=== PATIENT | male | born 1935 | race Caucasian/White ===

== ENCOUNTER 2018-05-28 09:31 | Inpatient (IN) | payer MEDICARE ==
[2018-05-28] MEDS ORDERED: NS 0.9% 1000 ML* 1,000 ML IV ONE (09:56)
--- NOTE | 2018-05-28 10:06 | ED ---
Neurological HPI - HPI Summary HPI Summary: This is scribe Regulo Caruso documenting for attending Dr. Rufino Davis This patient is an 83 year old M presenting to [facility] accompanied by his with a chief complaint of focal neurological deficits since waking at 0800. He endorses that he woke up at 0400, went to bathroom and experienced no sx. When he woke up again at 0800 and couldnt get up due to left sided hemiparesis, right-sided facial droop. Rx Aggrenox. PMHx AL 1999, 2 stents, 2000 TIA, elevated WBC when he had his AL. I, Dr. Joy personally performed the services described in this documentation as scribed in my presence and it is both accurate and complete. - History of Current Complaint Chief Complaint: EDWeakness Stated Complaint: WEAKNESS Time Seen by Provider: 05/28/18 09:49 Hx Obtained From: Patient, Family/Assistant Hall Director - Onset/Duration: Sudden Onset, Started hours ago, Still Present Timing: Constant Onset Severity: Moderate Current Severity: Moderate Neurological Deficit Location: Facial - right, LUE Pain Intensity: 0 Pain Scale Used: 0-10 Numeric Character: Motor Weakness Aggravating: Nothing Alleviating: Nothing Associated Signs and Symptoms: Positive: Weakness TPA Considered: No - LKW 0400 Similar Episode/Dx as: PMHx CVA and TIA Related Hx: Anticoagulants - Aggrenox - Allergy/Home Medications Allergies/Adverse Reactions: Allergies Allergy/AdvReac Type Severity Reaction Status Date / Time No Known Allergies Allergy Verified 05/28/18 10:09 Home Medications: Home Medications Acetaminophen [Tylenol Extra Strength] 500 mg PO SEE INSTRUCTIONS PRN 05/28/18 [ History Confirmed 05/28/18] Aspirin 81 mg CHEW TAB* [Aspirin Low Dose TAB*] 81 mg PO DAILY 05/28/18 [ History Confirmed 05/28/18] Dipyridamole/Aspirin 25/200* [Aggrenox 25/200*] 1 cap.er PO BID 05/28/18 [ History Confirmed 05/28/18] Isosorbide Dinitrate TAB* [Isordil TAB*] 40 mg PO DAILY 05/28/18 [History Confirmed 05/28/18] Multivit-Min/FA/Lycopen/Lutein [Centrum Silver Men Tablet] 1 each PO DAILY 05/28 [History Confirmed 05/28/18] Pravastatin Sodium 40 mg PO DAILY 05/28/18 [History Confirmed 05/28/18] Quinapril HCl 20 mg PO DAILY 05/28/18 [History Confirmed 05/28/18] Tamsulosin CAP* [Flomax CAP*] 0.4 mg PO DAILY 05/28/18 [History Confirmed ] PMH/Surg Hx/FS Hx/Imm Hx Endocrine/Hematology History: Denies: Hx Sickle Cell Disease Cardiovascular History: Reports: Hx Coronary Artery Disease, Hx Myocardial Infarction Denies: Hx Auto Implanted Cardiovert Defib History: Denies: Hx Dialysis Sensory History: Denies: Hx Legally Blind Opthamlomology History: Denies: Hx Legally Blind Neurological History: Reports: Hx Transient Ischemic Attacks (TIA) Psychiatric History: Denies: Hx Autism, Hx Schizophrenia - Surgical History Surgery Procedure, Year, and Place: 2x stents 2000 s/p [place]. Infectious Disease History: Yes Infectious Disease History: Denies: Traveled Outside the [place] in Last 30 Days - Family History Known Family History: Negative: Blood Disorder - Social History Occupation: Retired Lives: With Family - Alcohol Use: Rare Hx Substance Use: No Substance Use Type: Reports: None Hx Tobacco Use: No Smoking Status (MU): Never Smoked Tobacco Review of Systems Positive: Other - right-sided facial droop. Negative: Fever Positive: no symptoms reported Positive: Weakness - left-sided hemiparesis All Other Systems Reviewed And Are Negative: Yes Physical Exam - Summary Physical Exam Summary: VITAL SIGNS: Reviewed. GENERAL: Patient is a well-developed and nourished male who is lying comfortable in the stretcher.Patient is not in any acute respiratory distress. HEAD AND FACE: No signs of trauma. No ecchymosis, hematomas or skull depressions. No sinus tenderness. Right sided facial droop EYES: PERRLA, EOMI x 2, No injected conjunctiva, no nystagmus. No photophobia. EARS: Hearing grossly intact. Ear canals and tympanic membranes are within normal limits. MOUTH: Oropharynx within normal limits. NECK: Supple, trachea is midline, no adenopathy, no JVD, no carotid bruit, no c- spine tenderness, neck with full ROM. No meningeal signs, no Kernig's or brudzinskis signs. CHEST: Symmetric, no tenderness at palpation LUNGS: Clear to auscultation bilaterally. No wheezing or crackles. CVS: Regular rate and rhythm, S1 and S2 present, no murmurs or gallops appreciated. ABDOMEN: Soft, non-tender. No signs of distention. No rebound no guarding, and no masses palpated. Bowel sounds are normal. EXTREMITIES: left sided hemiparesis, no edema, no cyanosis or clubbing. NEURO: Alert and oriented x 3. Left sided weakness, facial droop on right side. Speech is normal and follows commands. NIH score: 2. SKIN: Dry and warm GCS: 15 Triage Information Reviewed: Yes Vital Signs On Initial Exam: Initial Vitals Temp Pulse Resp BP Pulse Ox 98.8 F 63 19 187/84 96 05/28/18 09:35 05/28/18 09:35 05/28/18 09:35 05/28/18 09:35 05/28/18 09:35 Vital Signs Reviewed: Yes - Lewellen Coma Scale Best Eye Response: 4 - Spontaneous Best Motor Response: 6 - Obeys Commands Best Verbal Response: 5 - Oriented Coma Scale Total: 15 Diagnostics - Vital Signs Vital Signs Temp Pulse Resp BP Pulse Ox 05/28/18 09:35 98.8 F 63 19 187/84 96 - Laboratory Result Diagrams: 05/29/18 05:11 05/29/18 05:11 Lab Statement: Any lab studies that have been ordered have been reviewed, and results considered in the medical decision making process. - Radiology CXR Radiology Interpretation Completed By: Radiologist - No active cardiopulmonary disease is noted. Dr. Joy has reviewed this report. - CT Brain CT Interpretation: No Acute Changes CT Interpretation Completed By: Radiologist - Chronic ischemic White matter change without evidence of intracranial mass or hemorrhage. Dr. Jyo has reviewed this report. - EKG 1002 Cardiac Rate: NL - 60 EKG Rhythm: Sinus Rhythm ST Segment: Normal Ectopy: None EKG Interpretation: nl axis and no STEMI NIH Scale - NIH Scale Level of Consciousness: Alert/Keenly Responsive Ask Patient the Month and His/Her Age: Both Correct Ask Pt to Open/Close Eyes and Dental Amalgam Processor/Release Non-Paretic Hand: Both Correctly Best Gaze (Only Horizontal Eye Movement): Normal Visual Field Testing: No Visual Loss Facial Paresis-Pt to Smile & Close Eyes or Grimace Symmetry: Minor Paralysis Motor Function - Right Arm: No Drift-Holds 10 Seconds Motor Function - Left Arm: Drifts LT 10 seconds Motor Function - Right Leg: No Drift-Holds 10 Seconds Motor Function - Left Leg: No Drift-Holds 10 Seconds Limb Ataxia-Must be out of Proportion to Weakness Present: Absent Sensory (Use Pinprick to Test Arms/Legs/Trunk/Face): Normal Best Language (Describe Picture, Name Items): No Aphasia Dysarthria (Read Several Words): Normal Extinction and Inattention: No Abnormality Total Score: 2 Re-Evaluation - Re-Evaluation First Eval Re-Evaluation Time: 11:50 Change: Unchanged Comment: Discussed elevated WBC count, PMHx, surgical Hx, and FHx. Course/Dx - Course Assessment/Plan: Blood test results shows a white cell count of 35.6, hemoglobin 13.4 hematocrit of 40, and platelets 163. Sodium 131 glucose 160 CRP of 22.8. Urinalysis is negative for UTI. Chest x-ray impression negative acute pathology. Head CT impression: Chronic ischemic white matter changes without evidence of intracranial mass or hemorrhage. In the ED course the patient remained stable. The patient was given aspirin. At this time I discussed the case with Dr. Dong for neurologist who agrees to consult for this patient. He also recommends to admit the patient to hospitalist to rule out CVA. At this time I discussed the case with Dr. Frazier the hospitalist and he accepted the patient for admission. At this point the patient will be admitted for TIA versus CVA and leukocytosis. - Differential Dx Differential Diagnoses Neuro: Positive: Cerebrovascular Accident, Transient Ischemic Attack - Diagnoses Provider Diagnoses: Leukocytosis - Physician Notifications Discussed Care Of Patient With: Dilma Dong Time Discussed With Above Provider: 11:55 Instructed by Provider To: Other - will see patient in ED. Discharge - Sign-Out/Discharge Documenting (check all that apply): Patient Departure - admit - Discharge Plan Condition: Fair Disposition: ADMITTED TO [facility] - Billing Disposition and Condition Condition: FAIR Disposition: Admitted to [facility] Attestations User Type: Provider with Scribe Provider Attestation: The documentation recorded by the scribe accurately reflects the service I personally performed and the decisions made by me. Consult Consult: 1201: Dr. Frazier: Accepts admission. Attestation Statement User Type: Provider - I, Dr. Joy personally performed the services described in this documentation as scribed in my presence and it is both accurate and complete.
[2018-05-28 10:20] LABS: Hematocrit 40 % (42-52); Hemoglobin 13.4 g/dl (14.0-18.0); Mean Corpuscular HGB Conc 34 g/dl (31-36); Mean Corpuscular Hemoglobin 31 pg (27-31); Mean Corpuscular Volume 92 fL (80-94); Mean Platelet Volume 6.9 um3 (7.4-10.4); Platelet Count 163 10^3/ul (150-450); Red Blood Count 4.34 10^6/ul (4.00-5.40); Red Cell Distribution Width 13 % (10.5-15); White Blood Count 35.6 10^3/ul (3.5-10.8)
[2018-05-28 10:29] LABS: INR 1.04 (0.77-1.02)
--- NOTE | 2018-05-28 10:35 | RAD ---
Indication: Left-sided weakness. CT of the brain performed without IV contrast. No prior study is available for comparison. Ventricular structures are midline. No midline shift is noted. Central and cortical atrophy is noted. There is no evidence of intracranial mass or hemorrhage. No other high or low density lesions are identified. Periventricular lucency consistent with chronic ischemic White matter change is noted. Mastoid air cells and paranasal sinuses are otherwise unremarkable. IMPRESSION: Chronic ischemic White matter change without evidence of intracranial mass or hemorrhage.
[2018-05-28 10:39] LABS: EGFR Non-African American 76.1 (>60)
[2018-05-28 10:47] LABS: ABS Basophils 0.2 10^3/ul (0-0.2); ABS Eosinophils 0 10^3/ul (0-0.6); ABS Lymphocytes 16.5 10^3/ul (1.0-4.8); ABS Monocytes 1.4 10^3/ul (0-0.8); ABS Neutrophils 17.6 10^3/ul (1.5-7.7)
[2018-05-28 10:50] LABS: ABS Basophils 0 10^3/ul (0-0.2); ABS Neutrophils 14.2 10^3/ul (1.5-7.7); Monocytes % 5 % (0-7)
--- NOTE | 2018-05-28 10:50 | RAD ---
Indication: Left-sided weakness. 2 views of the chest demonstrate no mediastinal shift. There is cardiomegaly noted. Lung feliciano demonstrate no pleural fluid, pneumonia or pneumothorax. IMPRESSION: No active cardiopulmonary disease is noted.
[2018-05-28 11:30] LABS: Urine Appearance Cloudy; Urine Blood 2+ (Negative); Urine Color Yellow; Urine Ketones Negative (Negative); Urine Protein 1+(30 mg/dL) (Negative); Urine Red Blood Cell 3+(>10/hpf) (Absent); Urine Specific Gravity 1.014 (1.010-1.030); Urine Urobilinogen Negative (Negative); Urine White Blood Cell Trace(0-5/hpf) (Absent)
[2018-05-28] MEDS ORDERED: Aspirin 81 mg CHEW TAB* 81 MG TAB.CHEW PO ONE (11:58)
[2018-05-28] MEDS ORDERED: hydrALAZINE IV* 20 MG/ML VIAL IV SLOW PU PRN ×2 (14:12→20:01)
[2018-05-28] MEDS ORDERED: Clopidogrel TAB* 300 MG PO SCH (15:00)
--- NOTE | 2018-05-28 15:19 | RAD ---
INDICATION: TIA COMPARISON: None TECHNIQUE: Transverse and longitudinal scans of the carotid and vertebral arteries were performed with ronquillo scale, color Doppler, and spectral Doppler imaging. Stenosis criteria is based on flow velocities that correlate with visual internal carotid artery diameter (NASCET criteria) FINDINGS: Right carotid: There is minor plaque involving the bifurcation. There is no spectral broadening. The peak systolic velocity of the internal carotid artery is 72 cm/s and the peak diastolic velocity 14 cm/s. The ICA/CCA ratio is calculated at 0.8. This corresponds to a less than 50% diameter stenosis. Left carotid: There is minor plaque involving the bifurcation. There is no spectral broadening. The peak systolic velocity of the internal carotid artery is 110 cm/s and the peak diastolic velocity 19 cm/s. The ICA/CCA ratio is calculated at 1.2. This corresponds to a less than 50% diameter stenosis. Right vertebral: Right vertebral waveforms are normal and the flow is antegrade. Left vertebral: Left vertebral waveforms are normal and the flow is antegrade. Other: There are elevated velocities left subclavian artery which suggests the possibility of a sclerotic change involving the great vessels arising from the arch. This would require CT angiographic evaluation if there is clinical indication. IMPRESSION: NO EVIDENCE OF A HEMODYNAMICALLY SIGNIFICANT STENOSIS. CPT II Codes: 3100F RS
--- NOTE | 2018-05-28 16:01 | RAD ---
Indication: TIA versus stroke. Sagittal and axial T1, axial T2, FLAIR, diffusion, susceptibility weighted images of the brain were obtained. No prior study is available for comparison. Ventricular structures are midline. No midline shift is noted. The extra-axial spaces are prominent consistent with central and cortical atrophy. Periventricular signal abnormality likely represents chronic ischemic White matter change. There is a tiny focus of restriction of diffusion involving the right temporal insula which appears to be decreased in signal on the ADC map. This is consistent with a small lacunar infarct. The brainstem and posterior fossa are otherwise unremarkable. Paranasal sinuses and mastoid air cells are unremarkable. Orbits are grossly unremarkable. IMPRESSION: Chronic ischemic White matter change. Central and cortical atrophy with small focal area of restriction of diffusion in the right temporal insula consistent with a small lacunar infarct.
--- NOTE | 2018-05-28 16:28 | HP ---
ADMITTING HISTORY AND PHYSICAL: DATE OF ADMISSION: 05/28/18 CHIEF COMPLAINT: Left-sided hemiparesis and right facial droop. HISTORY OF PRESENT ILLNESS: The patient is an 83-year-old gentleman with history of hypertension, CAD, status post NE in 1999, status post 2 stents placed as well as history of TIA diagnosed back in 2008 who mentioned that he was in his usual state of health until a few hours prior to admission. More specifically he mentioned that at around 4 a.m., he woke up to go to the bathroom and was still in his usual state of health and then went back to sleep. He then woke up again, he then reawoke at 8 a.m. and it was at that time that he noticed that he could not get up and felt that his left side was weak and his also found that the right side of his face had significant droop from previous. He was then brought to the ED for further evaluation at which point he had a CT scan of his head done which only showed some chronic ischemic white matter changes without intracranial mass or hemorrhage. Therefore Dr. Dong was consulted by Dr. Joy who then suggested that the patient can be admitted with followup Neurology consult thereafter. In addition, subsequent workup reveals significant leukocytosis at 35.6 and the mentions that they have been requested to follow up with the bi solutions architect in the past immediately right after his NE when they were told that his white count was elevated. Unfortunately, she barely remembers any of the details and specially the level at which the leukocytosis was found. They also failed to follow up with the suggested Hematology consultation as an outpatient when they were discharged at that time. In the ED, the patient was given aspirin 324 mg x1. PAST MEDICAL HISTORY: CAD status post NE back in 1999 receiving 2 cardiac stents, TIA back in 2008, hypertension, hypercholesterolemia, leukocytosis back in 1999 at [place], [place], where it was diagnosed at around the same time that he had his stents. PAST SURGICAL HISTORY: Status post tonsillectomy. ALLERGIES: NKDA. FAMILY HISTORY: Diabetes, his mother. CAD, his father. SOCIAL HISTORY: The patient was pipe smoker for about 4 to 5 years and only smoked one pipe per day during that time. Denies any history of alcohol abuse nor IV drug use. He is for 57 years with 2 healthy sons. REVIEW OF SYSTEMS: On review of systems, other than the right facial droop and left-sided hemiparesis described above, the patient denied any recent headaches , dizziness, fever, chills, nausea, vomiting, chest pain, shortness of breath, increase cough. No sputum production, abdominal pain, diarrhea, constipation pain and/or increase frequency in urination, myalgias, arthralgias, throat pain , or new skin lesion. The rest of the 14-point review of systems are otherwise unremarkable. PHYSICAL EXAMINATION GENERAL APPEARANCE: The patient is awake, not in acute distress. VITAL SIGNS: Shows the most recent vital signs of records with blood pressure of 177/82, 62 beats per minute heart rate, 21 per minute respiratory rate, saturating at 96% on room air. HEENT: Normocephalic, atraumatic. PERRLA. Extraocular muscles intact. Negative for icterus. Moist oral mucosa. Negative throat erythema. NECK: Soft, supple with no cervical lymphadenopathy. No JVD. CHEST: Clear to auscultation bilaterally. Good air entry. No wheezes, rales, or rhonchi. HEART: S1 and S2 within normal limits. Regular rate and rhythm. No murmurs, rubs, or gallops. ABDOMEN: Soft, nondistended, and nontender. Normoactive bowel sounds 4x q. EXTREMITIES: No cyanosis, clubbing with 1+ bilateral lower extremity edema. PSYCHIATRIC: No active psychosis, depression, suicidal, no homicidal ideation. SKIN: Warm to touch. NEUROLOGIC: Negative for Babinski in the bilateral lower extremities. Negative for Chaddock sign. The patient still has some mild right facial droop and has some mild asymmetry on smiling. The patient's mixing pan tender strengths on the left is slightly weaker than the right. However, extension and flexion motions were normal of the upper extremities as well as the lower extremities. No sensory deficit was elicited. LABORATORY DATA: Most recent and pertinent laboratory: CT of the head shows chronic ischemic white matter changes without any intracranial mass or hemorrhage. Chest x-ray shows no active disease. EKG shows nonspecific ST segment in V1, which is not consistent with V2 in the rest of the chest leads. There are no other abnormalities found. Troponins were found to be normal at 0.03. CRP was found to be mildly elevated at 22.83. CBC reveals 35.6 WBC, H and H of 13.4 and 40, platelets of 163. BUN and creatinine were found to be normal as well as the rest of his CMP. Urinalysis shows no wbc/leukocytosis. ASSESSMENT AND PLAN: The patient is an 83-year-old gentleman with history of coronary artery disease status post myocardial infarction, hypertension and transient ischemic attack being admitted for right facial droop and left-sided hemiparesis secondary to either cerebrovascular accident versus transient ischemic attack. 1. Cerebrovascular accident/transient ischemic attack. We will continue Aggrenox. However, we will discontinue aspirin, given Aggrenox already has an aspirin component and instead we will place the patient on Plavix especially given he was already on aspirin and dipyridamole when the above chief complaint occurred. We will continue with his statins as well. 2. Hypertension. We will place the patient on an equivalent dosing of formulary ELENA inhibitor and at the same time, we will place the patient on p.r.n. IV hydralazine 5 mg q.6 p.r.n. for BP greater than or equal to 160/90. 2. 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 Joy as well as Dr. Grover. Per Dr. Grover, she has suggested flow cytometry to be done and this has been ordered as well and we will differ with any further input from Dr Grover. 3. DVT prophylaxis. We will place the patient on low dose Lovenox given his advanced age and as well as being on 2 antiplatelet therapy. 4. Disposition. For PT/OT eval as well as for swallow eval. [id number]/[facility] #: [id number] [facility]
[2018-05-28] MEDS: Enoxaparin(*) 30 MG/0.3 ML SYR SUBCUT SCH (16:43)
[2018-05-28] MEDS ORDERED: Dipyridamole/Aspirin 25/200* CAP.ER PO SCH (21:00)
[2018-05-29] MEDS: Acetaminophen TAB* 325 MG PO PRN (00:39)
[2018-05-29] MEDS ORDERED: Vancomycin per Pharmacy* NOTE FOLLOW UP SCH ×2 (01:00)
--- NOTE | 2018-05-29 01:01 | PN ---
Progress Note - Progress Note Date of Service: 05/29/18 Note: All 4 blood CX bottles reported to have mixture of G+ clusters & chains, MRSA negative, MSSA negative. No ABX currently. Ordered Vancomycin pharmacy dosing & cefepime 2g IV BID. Plan would be to de-escalate ABX once organisms better characterized. Consider ID consult in AM.
[2018-05-29] MEDS ORDERED: Vancomycin(*) 1,250 MG in NS 0.9% 250 ML* 250 ML IVPB ONE (01:30)
[2018-05-29] MEDS: NS 0.9% 1000 ML* 1,000 ML IV SCH ×2 (01:38→20:48)
[2018-05-29] MEDS: Cefepime 2 GM in Dextrose(*) 2 GM/50 ML BAG IV SCH ×2 (01:38→15:52)
[2018-05-29 05:34] LABS: Hematocrit 38 % (42-52); Hemoglobin 12.7 g/dl (14.0-18.0); Mean Corpuscular HGB Conc 34 g/dl (31-36); Mean Corpuscular Hemoglobin 31 pg (27-31); Mean Corpuscular Volume 92 fL (80-94); Mean Platelet Volume 7.4 um3 (7.4-10.4); Platelet Count 151 10^3/ul (150-450); Red Blood Count 4.09 10^6/ul (4.00-5.40); Red Cell Distribution Width 13 % (10.5-15); White Blood Count 25.7 10^3/ul (3.5-10.8)
[2018-05-29 05:56] LABS: EGFR Non-African American 73.4 (>60)
--- NOTE | 2018-05-29 07:20 | CONSULT ---
Consultation - Reason for Consultation Reason for Consultation: leukocytosis Ordering Provider: Destin Frazier Chief Complaint: weakness History of Present Illness: It should be noted that Gianluca is a poor historian, particularly in regards to timeline Mr. Gray presented to the ER yesterday with right facial droop and left sided weakness. MRI of his brain confirms a small lacunar infarct. Overnight he apparently grew 4/4 bottles positive for gram positive cocci resembling staph and was started on antibiotics. His anticoagulation was held for potential lumbar puncture today pending ID consultation. He reports this am that he thinks his weakness is slightly better, though he has not been out of bed to ambulate. He was noted on admission to have significant leukocytosis with a lymphocyte predominance and smudge cells. 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 He reports that he stopped following up because he is old and does not particularly care. He specifically denies fevers , night sweats, weight loss, RIVERA or early satiety. Allergies/Medications Medication: Acetaminophen (Tylenol Tab*) 650 mg PO Q6H PRN PRN Reason: FEVER/PAIN Last Admin: 05/29/18 00:39 Dose: 650 mg Atorvastatin Calcium (Lipitor*) 20 mg PO DAILY [facility] Clopidogrel Bisulfate (Plavix Tab*) 75 mg PO DAILY [facility] Dipyridamole/Aspirin (Aggrenox 25/200*) 1 cap.er PO BID [facility] Last Admin: 05/28/18 21:42 Dose: 1 cap.er Enoxaparin Sodium (Lovenox(*)) 30 mg SUBCUT Q24H [facility] Last Admin: 05/28/18 16:43 Dose: 30 mg Hydralazine HCl (Apresoline Iv*) 10 mg IV SLOW PU Q6H PRN PRN Reason: BLOOD PRESSURE Cefepime HCl (Maxipime 2 Gm In Dextrose Duplex (*)) 2 gm in 50 mls @ 100 mls/ hr IV Q12H [facility] Last Admin: 05/29/18 01:38 Dose: 100 mls/hr Sodium Chloride (Ns 0.9% 1000 Ml*) 1,000 mls @ 75 mls/hr IV PER RATE [facility] Last Admin: 05/29/18 01:38 Dose: 75 mls/hr Vancomycin HCl 1,000 mg/ (Sodium Chloride) 250 mls @ 166.667 mls/hr IVPB Q12H [facility] Isosorbide Mononitrate (Imdur Er Tab*) 60 mg PO DAILY [facility] Lisinopril (Prinivil Tab*) 40 mg PO DAILY [facility] Pharmacy Consult (Vancomycin Per Pharmacy*) 1 note FOLLOW UP .VANC PER PHARMACY [facility] Pharmacy Profile Note (Vancomycin Trough Check) 1 note FOLLOW UP 1430 ONE Stop: 05/30/18 14:31 Tamsulosin HCl (Flomax Cap*) 0.4 mg PO DAILY [facility] Allergies/Adverse Reactions: Allergies Allergy/AdvReac Type Severity Reaction Status Date / Time No Known Allergies Allergy Verified 05/28/18 10:09 History - Past Medical History Other History: CAD sp NE w stents 1999. TIA 2008. HTN. hyerplipidemia. likely CLL. tonsillectomy - Family History Hx Family Cancer: No - Social History Hx Alcohol Use: No Hx Tobacco Use: No Marital Status: Review of Systems - Review of Systems Dermatology: Positive: Normal HEENT: Positive: Other - age related hearing loss Eyes: Positive: Normal Thyroid: Positive: Normal Pulmonary: Positive: Normal Cardiology: Positive: Normal Gastroenterology: Positive: Normal Genital - Urinary: Positive: Normal Musculoskeletal: Positive: Low Back Pain Endocrinology: Positive: Normal Neurology: Positive: Other - r facial droop Physical Exam - Physical Exam Physical Examination: Vital Signs Temp Pulse Resp BP Pulse Ox 97.6 F 51 16 146/47 100 05/29/18 04:41 05/29/18 04:18 05/29/18 04:18 05/29/18 04:18 05/29/18 04:18 lying flat in bed in nad perr eomi right facial droop CTA bl s1 s2 bradycardia soft nt +Bs no splenomegaly no le edema r facial droop, did not ambulate 5/5 strength throughout A+O x2, problems with time line Results - Lab Results Lab Results: 05/28/18 05/28/18 05/28/18 10:06 10:06 10:06 WBC 35.6 H RBC 4.34 Hgb 13.4 L Hct 40 L MCV 92 MCH 31 MCHC 34 RDW 13 Plt Count 163 MPV 6.9 L Neut % (Auto) Not Reportable Lymph % (Auto) Not Reportable Ford % (Auto) Not Reportable Eos % (Auto) Not Reportable Baso % (Auto) Not Reportable Absolute Neuts (auto) 17.6 H Absolute Lymphs (auto) 16.5 H Absolute Monos (auto) 1.4 H Absolute Eos (auto) 0 Absolute Basos (auto) 0.2 Absolute Nucleated RBC Not Reportable Immature Gran % 6 Neutrophils % 40 Band Neutrophils % 6 Lymphocytes % 46 Reactive Lymphs % 3 Monocytes % 5 Eosinophils % 0 Basophils % 0 Nucleated RBC % Not Reportable Abs Neuts (Manual) 14.2 H Abs Lymphs (Manual) 16.4 H Abs Monocytes (Manual) 1.8 H Absolute Eos (Manual) 0 Abs Basophils (Manual) 0 Smudge Cells Present Normal RBC Morphology Not Reportable INR (Anticoag Therapy) 1.04 H APTT 28.3 Sodium 131 L Potassium 4.3 Chloride 100 L Carbon Dioxide 24 Anion Gap 7 BUN 16 Creatinine 0.95 Est GFR ( Amer) 92.1 Est GFR (Non-Af Amer) 76.1 BUN/Creatinine Ratio 16.8 Glucose 160 H Hemoglobin A1c Lactic Acid Calcium 8.8 Phosphorus Magnesium Total Bilirubin 1.20 H AST 16 ALT 13 Alkaline Phosphatase 55 Troponin I 0.03 C-Reactive Protein 22.83 H Total Protein 5.8 L Albumin 3.8 Globulin 2.0 Albumin/Globulin Ratio 1.9 Triglycerides 39 Cholesterol 113 LDL Cholesterol 63 HDL Cholesterol 42.4 TSH 0.69 Urine Color Urine Appearance Urine pH Ur Specific [place] Urine Protein Urine Ketones Urine Blood Urine Nitrate Urine Bilirubin Urine Urobilinogen Ur Leukocyte Esterase Urine WBC (Auto) Urine RBC (Auto) Urine Bacteria Urine Glucose 05/28/18 05/28/18 05/28/18 10:06 10:06 10:54 WBC RBC Hgb Hct MCV MCH MCHC RDW Plt Count MPV Neut % (Auto) Lymph % (Auto) Ford % (Auto) Eos % (Auto) Baso % (Auto) Absolute Neuts (auto) Absolute Lymphs (auto) Absolute Monos (auto) Absolute Eos (auto) Absolute Basos (auto) Absolute Nucleated RBC Immature Gran % Neutrophils % Band Neutrophils % Lymphocytes % Reactive Lymphs % Monocytes % Eosinophils % Basophils % Nucleated RBC % Abs Neuts (Manual) Abs Lymphs (Manual) Abs Monocytes (Manual) Absolute Eos (Manual) Abs Basophils (Manual) Smudge Cells Normal RBC Morphology INR (Anticoag Therapy) APTT Sodium Potassium Chloride Carbon Dioxide Anion Gap BUN Creatinine Est GFR ( Amer) Est GFR (Non-Af Amer) BUN/Creatinine Ratio Glucose Hemoglobin A1c 6.5 H Lactic Acid 0.9 Calcium Phosphorus Magnesium Total Bilirubin AST ALT Alkaline Phosphatase Troponin I C-Reactive Protein Total Protein Albumin Globulin Albumin/Globulin Ratio Triglycerides Cholesterol LDL Cholesterol HDL Cholesterol TSH Urine Color Yellow Urine Appearance Cloudy Urine pH 8.0 Ur Specific [place] 1.014 Urine Protein 1+(30 mg/dl) A Urine Ketones Negative Urine Blood 2+ A Urine Nitrate Negative Urine Bilirubin Negative Urine Urobilinogen Negative Ur Leukocyte Esterase Negative Urine WBC (Auto) Trace(0-5/hpf) Urine RBC (Auto) 3+(>10/hpf) A Urine Bacteria Absent Urine Glucose Negative 05/28/18 05/29/18 05/29/18 18:11 00:31 05:11 WBC 25.7 H RBC 4.09 Hgb 12.7 L Hct 38 L MCV 92 MCH 31 MCHC 34 RDW 13 Plt Count 151 MPV 7.4 Neut % (Auto) Lymph % (Auto) Ford % (Auto) Eos % (Auto) Baso % (Auto) Absolute Neuts (auto) Absolute Lymphs (auto) Absolute Monos (auto) Absolute Eos (auto) Absolute Basos (auto) Absolute Nucleated RBC Immature Gran % Neutrophils % Band Neutrophils % Lymphocytes % Reactive Lymphs % Monocytes % Eosinophils % Basophils % Nucleated RBC % Abs Neuts (Manual) Abs Lymphs (Manual) Abs Monocytes (Manual) Absolute Eos (Manual) Abs Basophils (Manual) Smudge Cells Normal RBC Morphology INR (Anticoag Therapy) APTT Sodium Potassium Chloride Carbon Dioxide Anion Gap BUN Creatinine Est GFR ( Amer) Est GFR (Non-Af Amer) BUN/Creatinine Ratio Glucose Hemoglobin A1c Lactic Acid Calcium Phosphorus Magnesium Total Bilirubin AST ALT Alkaline Phosphatase Troponin I 0.03 0.05 H* C-Reactive Protein Total Protein Albumin Globulin Albumin/Globulin Ratio Triglycerides Cholesterol LDL Cholesterol HDL Cholesterol TSH Urine Color Urine Appearance Urine pH Ur Specific [place] Urine Protein Urine Ketones Urine Blood Urine Nitrate Urine Bilirubin Urine Urobilinogen Ur Leukocyte Esterase Urine WBC (Auto) Urine RBC (Auto) Urine Bacteria Urine Glucose 05/29/18 05:11 WBC RBC Hgb Hct MCV MCH MCHC RDW Plt Count MPV Neut % (Auto) Lymph % (Auto) Ford % (Auto) Eos % (Auto) Baso % (Auto) Absolute Neuts (auto) Absolute Lymphs (auto) Absolute Monos (auto) Absolute Eos (auto) Absolute Basos (auto) Absolute Nucleated RBC Immature Gran % Neutrophils % Band Neutrophils % Lymphocytes % Reactive Lymphs % Monocytes % Eosinophils % Basophils % Nucleated RBC % Abs Neuts (Manual) Abs Lymphs (Manual) Abs Monocytes (Manual) Absolute Eos (Manual) Abs Basophils (Manual) Smudge Cells Normal RBC Morphology INR (Anticoag Therapy) APTT Sodium 131 L Potassium 4.0 Chloride 102 Carbon Dioxide 23 Anion Gap 6 BUN 19 Creatinine 0.98 Est GFR ( Amer) 88.8 Est GFR (Non-Af Amer) 73.4 BUN/Creatinine Ratio 19.4 Glucose 157 H Hemoglobin A1c Lactic Acid Calcium 8.2 L Phosphorus 3.3 Magnesium 1.8 L Total Bilirubin 0.80 AST 14 ALT 11 Alkaline Phosphatase 47 Troponin I 0.03 C-Reactive Protein Total Protein 5.1 L Albumin 3.0 L Globulin 2.1 Albumin/Globulin Ratio 1.4 Triglycerides 56 Cholesterol 99 LDL Cholesterol 52 HDL Cholesterol 36.3 TSH Urine Color Urine Appearance Urine pH Ur Specific [place] Urine Protein Urine Ketones Urine Blood Urine Nitrate Urine Bilirubin Urine Urobilinogen Ur Leukocyte Esterase Urine WBC (Auto) Urine RBC (Auto) Urine Bacteria Urine Glucose Assessment and Plan Impression: 83 yo M admitted with a CVA with course complicated by bacteremia, found to have leukocytosis with lymphocyte predominance. 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 Flow is pending. He is clear that he is unlikely to follow up with me, though I will give him an appointment on discharge. In terms of his bacteremia and the question of need for LP, I will defer to ID and anesthesia on this, but IF he does get an LP, please send for cytology and flow cytometry on the off chance that there is DICE DEALER involvement (suspicion quite low).
[2018-05-29] MEDS ORDERED: Magnesium Sulfate 2 GM IV* 2 GM/50 ML BAG IVPB ONE (08:00)
[2018-05-29] MEDS: Atorvastatin* 20 MG TAB PO SCH (08:49)
[2018-05-29] MEDS: Aspirin 81 mg CHEW TAB* 81 MG TAB.CHEW PO SCH (08:49)
[2018-05-29] MEDS: Lisinopril TAB* 10 MG PO SCH (08:49)
[2018-05-29] MEDS: Tamsulosin CAP* 0.4 MG PO SCH (08:50)
[2018-05-29] MEDS: Isosorbide Mononitrate ER TAB* 60 MG PO SCH (08:50)
[2018-05-29] MEDS ORDERED: Clopidogrel TAB* 75 MG PO SCH (09:00)
--- NOTE | 2018-05-29 12:24 | ECHO ---
Patient: SERGIO CHAMBERS [facility] Rec#: [id number] : 1935 Date: 05/29/2018 Age: 83y Height: 175 cm / 68.9 in Weight: 76.2 kg / 167.9 lbs Sex: M BSA: 1.92 Room#: 431 Admit Date#: 05/28/2018 Type: Inpatient Referring: Destin Frazier Reading: Chriss Joyner MD Pasteuriser Operator: Alisia Schwab RDCS CC: Eldon Sullivan MD Transthoracic Echocardiogram Indication: CVA, Bacteremia BP: 146/47 HR: 56 Rhythm: Bradycardia Findings History: CAD, IA, s/p PCI, TIA. Technical Comments: The study quality is fair. Completed at 1100. Left Ventricle: The left ventricular chamber size is normal. Mild concentric left ventricular hypertrophy is observed. There is a prominent septal knuckle. There is normal left ventricular systolic function. The estimated ejection fraction is 60-65%. There is septal flattening of the interventricular septum consistent with right ventricular volume or pressure overload. Abnormal left ventricular diastolic function is observed. Abnormal left ventricular diastolic filling is observed, consistent with impaired relaxation. Left Atrium: The left atrium is mildly dilated. Right Ventricle: Moderator Band present. The right ventricle is moderately dilated. The right ventricular global systolic function is normal. Right Atrium: The right atrium is moderate to severely dilated. No atrial septal defect is demonstrated by color Doppler. There were late bubbles seen in the left atrium.with valsalva. Possible PFO by contrast injection. Aortic Valve: The aortic valve is trileaflet. The aortic valve leaflets are mildly thickened. There is aortic annular calcification. There is a trace of aortic regurgitation. There is no evidence of aortic stenosis. Mitral Valve: There is mitral annular calcification. The mitral valve leaflets are mildly thickened. There is mild mitral regurgitation. There is no evidence of mitral stenosis. Tricuspid Valve: The tricuspid valve leaflets are normal. There is mild tricuspid regurgitation. The right ventricular systolic pressure is estimated at 32 mmHg. There is evidence that pulmonary hypertension may be underestimated. There is no tricuspid stenosis. Pulmonic Valve: The pulmonic valve appears normal. There is a trace pulmonic regurgitation. There is no pulmonic stenosis. Pericardium: There is no significant pericardial effusion. Aorta: There is no dilatation of the ascending aorta. There is no dilatation of the aortic arch. There is mild dilatation of the aortic root. Pulmonary Artery: The main pulmonary artery is not well visualized. Venous: The inferior vena cava appears normal in size. There is a greater than 50% respiratory change in the inferior vena cava dimension. Contrast: Normal saline was used as contrast for the bubble study. Intravenous contrast was used to help determine presence of intracardiac shunting. Summary: There was not any prior study for comparison. Conclusions Mild concentric left ventricular hypertrophy is observed. The estimated ejection fraction is 60-65%. There is septal flattening of the interventricular septum consistent with right ventricular volume or pressure overload. Abnormal left ventricular diastolic filling is observed, consistent with impaired relaxation. The left atrium is mildly dilated. The right ventricle is moderately dilated. The right atrium is moderate to severely dilated. No atrial septal defect is demonstrated by color Doppler. The aortic valve leaflets are mildly thickened. There is a trace of aortic regurgitation. There is mild mitral regurgitation. There is mild tricuspid regurgitation. The right ventricular systolic pressure is estimated at 32 mmHg. There is mild dilatation of the aortic root. There were late bubbles seen in the left atrium.with valsalva. Possible PFO by contrast injection. No atrial septal defect is demonstrated by color Doppler. Measurements Name Value Normal Range RVIDd (AP) 2D 3.9 cm (0.9 - 2.6) RVDdMajor (2D) 5.7 cm (2.2 - 4.4) RAd ISD 4CH 6.1 cm (3.4 - 4.9) RA (A4C)W 6.1 cm (2.9 - 4.6) IVSd (2D) 1.1 cm (0.6 - 1) LVPWd (2D) 1.1 cm (0.6 - 1) LVIDd (2D) 4.3 cm (3.6 - 5.4) LVIDs (2D) 2.7 cm - LV FS (2D) 37 % (25 - 45) Aortic Annulus 1.7 cm (1.4 - 2.6) Ao root diameter (2D) 3.6 cm (2.1 - 3.5) Ascending Ao 2.9 cm (2.1 - 3.4) Aortic arch 2.2 cm (1.8 - 3.4) LA dimension (AP) 2D 4 cm (2.3 - 3.8) LAd ISD 4CH 5.2 cm (2.9 - 5.3) LA ISD 4CH W 4.8 cm (2.5 - 4.5) Name Value Normal Range LA ESV BP (A/L) index 30 ml/m2 - Name Value Normal Range MV E-wave Vmax 0.7 m/sec - MV deceleration time 225 msec - MV A-wave Vmax 1 m/sec - MV E:A ratio 0.7 ratio - LV septal e' Vmax 0.06 m/sec - LV lateral e' Vmax 0.08 m/sec - LV E:e' septal ratio 11.67 ratio - LV E:e' lateral ratio 8.75 ratio - Name Value Normal Range AV Vmax 1.2 m/sec - AV VTI 30.6 cm - AV peak gradient 6 mmHg - AV mean gradient 3 mmHg - LVOT Vmax 1.17 m/sec - LVOT VTI 23 cm - LVOT peak gradient 5 mmHg - LVOT mean gradient 3 mmHg - JESSIE Vmax 0.7 m/sec - Name Value Normal Range TR Vmax 2.7 m/sec - TR peak gradient 29 mmHg - RAP 3 mmHg - RVSP 32 mmHg - IVC diameter 1.9 cm - Name Value Normal Range PV Vmax 1.1 m/sec - PV peak gradient 4 mmHg -
[2018-05-29] MEDS ORDERED: Vancomycin(*) 1,000 MG in NS 0.9% 250 ML* 250 ML IVPB SCH (14:30)
[2018-05-29] MEDS ORDERED: Gadoteridol* (CONTRAST) 279.3 MG/ML 10 ML IV ONE (15:30)
--- NOTE | 2018-05-29 15:59 | RAD ---
Indication: Evaluate for intracranial disease. 15 mL of ProHance was injected intravenously. Sagittal, coronal and axial postcontrast T1-weighted images were repeated. No evidence of abnormally enhancing lesions are noted. No evidence of leptomeningeal enhancement is noted. The orbits are otherwise unremarkable. IMPRESSION: Atrophy. No intracranial lesion is identified.
--- NOTE | 2018-05-29 15:59 | PN ---
Subjective Date of Service: 05/29/18 Interval History: Pt seen and examined. Meds and labs reviewed. CC: CVA ROS: Denied LIAO/dizziness, F/C, N/V, CP, SOB, increased cough, sputum production , abd pain, diarrhea, constipation, dysuria, myalgias, arthralgias, throat pain , and new skin lesions. The rest of the 14 point ROS are unremarkable. PHYSICAL EXAM: GEN APPEARANCE: Awake, not in acute distress HEENT: NC/AT, PERRLA, moist oral mucosa, (-) throat erythema NECK: Soft, supple, (-) cervical LAD, (-)JVD HEART: S1S2 WNL, RRR, No MRG CHEST: CTA, BL, GAE, No W/R/R ABD: Soft, ND/NT, NABS 4x Q EXT: No C/C/E SKIN: Warm to touch PSYCH: No active psychosis, hallucinations, depression, SI/HI NEURO: (-) Jolie, (-) Kristofer, (-)Kaleigh Objective Active Medications: Acetaminophen (Tylenol Tab*) 650 mg PO Q6H PRN PRN Reason: FEVER/PAIN Last Admin: 05/29/18 00:39 Dose: 650 mg Aspirin (Aspirin 81 Mg Chew Tab*) 81 mg PO DAILY [facility] Last Admin: 05/29/18 08:49 Dose: 81 mg Atorvastatin Calcium (Lipitor*) 20 mg PO DAILY [facility] Last Admin: 05/29/18 08:49 Dose: 20 mg Enoxaparin Sodium (Lovenox(*)) 30 mg SUBCUT Q24H [facility] Last Admin: 05/28/18 16:43 Dose: 30 mg Hydralazine HCl (Apresoline Iv*) 10 mg IV SLOW PU Q6H PRN PRN Reason: BLOOD PRESSURE Sodium Chloride (Ns 0.9% 1000 Ml*) 1,000 mls @ 75 mls/hr IV PER RATE [facility] Last Admin: 05/29/18 01:38 Dose: 75 mls/hr Ceftriaxone Sodium 1 gm/ (Sodium Chloride) 50 mls @ 200 mls/hr IVPB Q24H [facility] Isosorbide Mononitrate (Imdur Er Tab*) 60 mg PO DAILY [facility] Last Admin: 05/29/18 08:50 Dose: 60 mg Lisinopril (Prinivil Tab*) 40 mg PO DAILY [facility] Last Admin: 05/29/18 08:49 Dose: 40 mg Tamsulosin HCl (Flomax Cap*) 0.4 mg PO DAILY [facility] Last Admin: 05/29/18 08:50 Dose: 0.4 mg Vital Signs - 8 hr 05/29/18 05/29/18 08:00 12:29 Temperature 98.2 F Pulse Rate 57 Respiratory 18 16 Rate Blood Pressure 150/55 (mmHg) O2 Sat by Pulse 99 Oximetry Oxygen Devices in Use Now: None Result Diagrams: 05/29/18 05:11 05/29/18 05:11 Microbiology and Other Data: Microbiology 05/28/18 10:54 Urine Culture - Final Urine 05/28/18 11:00 Aerobic Blood Culture - Preliminary Blood Venous Strep Agalactiae - (Group B) Anaerobic Blood Culture - Preliminary Strep Agalactiae - (Group B) Blood MRSA/MSSA (PCR) - Final Mrsa Negative S.aureus Negative 05/28/18 11:06 Aerobic Blood Culture - Preliminary Blood Venous Strep Agalactiae - (Group B) Anaerobic Blood Culture - Preliminary Strep Agalactiae - (Group B) Blood MRSA/MSSA (PCR) - Final Mrsa Negative S.aureus Negative Assess/Plan/Problems-Billing Assessment: - Patient Problems (1) CVA (cerebral vascular accident) Current Visit: Yes Status: Acute Code(s): I63.9 - CEREBRAL INFARCTION, UNSPECIFIED SNOMED Code(s): 215386463 Comment: -MRI non-contrast shows lacunar infarct -Continue with ASA for now -D/W Dr. Dong and Luis -MRI of brain with contrast and MRA of head pending -2Decho: shows possible PFO; no comments on any vegetations -Carotid U/S shows no significant stenosis -Visited pt again due to possible inflamed right knee discussed with Dr. Dong while I agree that the knee is warmer than the left, no other signs of inflammation was present, such as erythema, tenderness, and decreased range of motion (i.e., functio laesa) with negative drawers sign, nor edema (he says that his RLE has always been bigger than the LLE). (2) Cellulitis of right ankle Current Visit: Yes Status: Acute Code(s): L03.115 - CELLULITIS OF RIGHT LOWER LIMB SNOMED Code(s): 41706023 Comment: -Likely source of bacteremia per Dr. Smith -Pt now on Rocephin due to S. agalactiae bacteremia (3) Streptococcal bacteremia Current Visit: Yes Status: Acute Code(s): R78.81 - BACTEREMIA; B95.5 - UNSP STREPTOCOCCUS THE CAUSE OF DISEASES CLASSD [id number] SNOMED Code(s): 423046999308 Comment: -S. agalactiae possible source is Right ankle -Would need SANDRA on Fridaydiscussed with Dr. Smith (4) Leukocytosis Current Visit: Yes Status: Acute Code(s): D72.829 - ELEVATED WHITE BLOOD CELL COUNT, UNSPECIFIED SNOMED Code(s): 950230555 Comment: -Likely due to bacteremia described above concomitant with now confirmed CLL suspected on admission -Appreciate Dr. Garcia input -Pt clarified with Dr. Grover that he did actually follow up with a plastic fixture builder and remembered he was told he has CLL and mentioned unlikely to F/ U with Dr. Grover -Given pt is otherwise asymptomatic, pt clinically appears to be stage 0 -Continue watchful waiting -Awaiting results of flow cytometry (5) Hypertension Current Visit: Yes Status: Acute Code(s): I10 - ESSENTIAL (PRIMARY) HYPERTENSION SNOMED Code(s): 74124213 Comment: -Continue Lisinopril -SBPs elevated, DBP is either low or normal---will continue watchful waiting at this time -Continue PRN anti-hypertensive meds (6) DVT prophylaxis Current Visit: Yes Status: Acute Code(s): MXQ4995 - SNOMED Code(s): 101478951 Comment: -Continue low-dose Lovenox Status and Disposition: -As above
[2018-05-29] MEDS ORDERED: amLODIPine TAB* 5 MG PO SCH (16:00)
[2018-05-29] MEDS: Enoxaparin(*) 30 MG/0.3 ML SYR SUBCUT SCH (16:02)
--- NOTE | 2018-05-29 16:03 | RAD ---
Indication: Lacunar stroke in the right temporal insula MRA of the brain performed after utilizing 3-D [id number] technique. Multiple maximum intensity projected images of the brain were obtained. The intracranial carotid arteries are unremarkable. The demonstrate normal bifurcation with no evidence of branch occlusion. No aneurysmal dilatation is noted. A small left vertebral artery is identified. The vertebral artery appears to end at the at the posterior inferior cerebellar artery. The basilar artery is normal caliber. Normal bifurcation is noted. No branch occlusion is noted. No aneurysmal dilatation is noted. IMPRESSION: No aneurysmal dilatation of the intracranial vessels are noted. No branch occlusion is identified.
--- NOTE | 2018-05-29 16:18 | CONS ---
NEUROLOGY CONSULTATION REPORT: DATE OF CONSULT: 05/29/18 CONSULTING PHYSICIAN: Destin Frazier MD REASON FOR CONSULTATION: Neurology is following for the evaluation of stroke. CHIEF COMPLAINT: Left-sided hemiparesis. HISTORY OF PRESENT ILLNESS: Mr. Gray is a pleasant 83-year-old man with history of coronary artery disease status post stent placement in 1999, TIA in 2008 where he developed transient symptoms of confusion, dyslipidemia, hypertension, and CLL, who presented with new onset left hemiparesis. The patient spouse Lashanda provided most of the medical history, although the patient was able to also communicate and provide the history. The patient woke up at 4 a.m. on 05/28/18. He was fine. He went to the bathroom and went back to bed. The patient then woke up at 07:30 a.m. The patient was having trouble getting up. He had generalized fatigue. He was having trouble standing on his feet. He felt that the left arm and left leg was weaker than the right. This progressed throughout the day. His stated that the patient had slurred speech, which she did not notice the night before. The patient takes Aggrenox regularly. NIH stroke scale today is 4 for drift on the left leg, left arm, left facial droop, and dysarthria. Overnight, the patient was found to have positive blood cultures. They grew Strep agalactiae 4/4. The patient is complaining of a 1 week history of right knee pain. The patient has not had any recent traveling. The patient does not have any metal in his body except for stent placed in the year 1999. The patient has not been feeling ill or febrile at home. The patient denied any recent headaches or visual disturbance. He denied any neck rigidity. PAST MEDICAL HISTORY: As mentioned in the HPI. PAST SURGICAL HISTORY: Status post tonsillectomy. HOME MEDICATIONS: 1. Quinapril 20 mg p.o. daily. 2. Aggrenox 1 p.o. twice daily. 3. Isosorbide dinitrate 40 mg p.o. daily. 4. Pravastatin 40 mg daily. 5. Tamsulosin 0.4 mg p.o. daily. 6. Aspirin 81 p.o. daily. 7. Acetaminophen 500 mg p.o. daily. ALLERGIES: No known drug allergies. FAMILY HISTORY: His mother had diabetes and his father had coronary artery disease. There is no family history of stroke or seizures. SOCIAL HISTORY: The patient was a pipe smoker for 4-5 years. He denied any recent tobacco use. He denied any alcohol use. He has been for 57 years. REVIEW OF SYSTEMS: A 14-point review of systems was obtained and otherwise negative except for what was mentioned in the HPI. PHYSICAL EXAMINATION: Vitals: Temperature of 99.7, but the patient had a fever of 102.5 overnight. Heart rate of 55, respiratory rate of 20, oxygen saturation 100% on room air, blood pressure 170/51. General: Ill-appearing elderly man, in no acute distress. He is cooperative. He appears stated age. Head: Normocephalic, atraumatic. Eyes: Conjunctivae/corneas are clear. Neck is supple and symmetrical with no carotid bruits. Lungs are clear to auscultation bilaterally. He has nonlabored breathing. Cardiovascular: Regular rate, rhythm. Normal S1, S2. Extremities: Hammertoes bilaterally, but no high arches. He does have slight warmth to touch on the right knee, but not the left knee. He has slight erythema on the patellar surface of the right knee. Psych: Affect is broad and normal mood. Easy to establish rapport. Neurological Examination: Awake and alert and oriented to person, place, time, and general circumstances. He was able to tell me who the president was and what he would do if his neighbor's house went on fire. 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 He has no difficulty expressing, naming, or repeating. Cranial nerves, normal confrontation testing bilaterally with some widening of the palpebral fissure on the left side. He has subtle asymmetric droop, which seems to be on the right, but when he smiles, he definitely has left of his oral cavity showing on the left side. Sensation is intact in the forehead, cheeks, and jaw region bilaterally. He is able to hear throughout the history process with symmetrical palate elevation. He has normal strength against shoulder shrug resistance. Tongue is symmetrical in midline with no atrophy. Motor: No abnormal movements. He did have a positive pronator drift on the left side. He has slightly increase in tone and trigger finger on the left, digit 4. He has long tract pyramidal weakness on the left upper extremity graded as 4/5, otherwise he has 5/5 strength throughout. Reflexes right/left: Brachioradialis 1/2, biceps 1/2, triceps 1/2, patellar 1/2, ankle 1/2, plantar flexor/extensor. Sensation is intact to light touch throughout. Reduced vibration at the toe. Intact proprioception at the great toe. Coordination: Normal [id number], but reduced alternative movements on the left upper extremity. Gait and station were not assessed as the patient is ill, receiving antibiotic therapy, feeling fatigued. LABORATORY DATA/DIAGNOSTIC STUDIES: The patient presented with a WBC of 35,000 and now it is 25,000, hemoglobin of 12.7, hematocrit of 38, and platelet count of 151. INR is 1.04, APTT 28. Sodium of 131, potassium 4.3, chloride 100, carbon dioxide 24, anion gap of 7, BUN of 16, creatinine of 0.95, glucose is 160 , hemoglobin A1c 6.5. LDL 63, HDL 42, cholesterol 113. Urinalysis negative for dysuria. The patient had a CT head on admission without contrast dated 05/28/18, that showed chronic ischemic white matter changes without evidence of intracranial mass or hemorrhage. Chest x-ray showed no evidence of active cardiopulmonary disease. Brain MRI that was completed without contrast showed chronic ischemic white matter changes, central and cortical atrophy with small area of restricted diffusion in the right insula region consistent with a small lacunar acute infarction. Susceptibility image showed diffuse areas of susceptibilities consistent with microangiopathic hemorrhage that is involving the left cerebellum, bilateral basal ganglia, and the subcortical regions bilaterally. Carotid Doppler study completed on 05/28/18, showed no evidence of hemodynamically significant stenosis. ASSESSMENT: Mr. 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 He was found to have fever overnight and blood cultures are positive for Streptococcus agalactiae. The patient has been started on cefepime. 1. Acute onset of left hemiparesis - there is MRI evidence of a tiny lacunar infarct in the right insular/basal ganglia region. Although this can explain his neurological deficits - the stroke is quite small and I would not expect the degree of neurological deficit that he is experiencing. The mechanism of the stroke is mostly a small vessel disease due to chronic hypertension. Other risk factors include age, history of dyslipidemia, and prior TIA. I agree with the current antiplatelet therapy with aspirin 81 mg daily. The patient was on Aggrenox and aspirin prior to the hospitalization. After 24 hours, please change the patient to Plavix 75 mg daily. I do not recommend dual antiplatelet therapy in this case given that the patient has increased susceptibility artifact on MRI consistent with numerous, diffuse microangiopathic hemorrhage on the MRI. The patient has been started on Lipitor 20 mg daily. I agree with the dose of Lipitor as the patient may experience side effects with higher dose statin therapy. We discussed stroke education. Please consult PT/OT/TRACTOR TRAIL[employer]ING [employer] for further evaluation. Maintain his systolic blood pressure between 140 to less than 180 for the next 24 hours and then normotensive thereafter. 2. Bacteremia - risk factors include history of cancer, age and we need to evaluate for possible underlying endocarditis that may be a source for this small, tiny ischemic stroke. Pending the transthoracic echo. Depending on the quality, the patient may need transesophageal echo. He has no signs of meningitis. Therefore, I would recommend holding off on the lumbar puncture unless otherwise it is recommended by the Infectious Disease specialist. The patient is on cefepime. Monitor for any neurotoxicity. 3. Hyperlipidemia, hypertension, chronic lymphocytic leukemia - defer to the primary team. TIME SPENT: I spent a total of 70 minutes and greater than 50% of that was spent directly reviewing the medical chart, obtaining history, examining the patient, education, counseling, and discussing the treatment plan as mentioned above. I will sign out to Dr. Fonseca. He will follow up with the patient in the morning. [id number]/[facility] #: [id number] MTDD
--- NOTE | 2018-05-29 16:59 | CONS ---
CONSULTATION REPORT: DATE OF CONSULT: 05/29/18 REQUESTING PHYSICIAN: Dr. Frazier. CONSULTING SERVICE: Infectious Disease. REASON FOR CONSULT: Streptococcal bacteremia. IMPRESSION: 1. Sepsis, present on admission, due to group B streptococcus bacteremia in 4/ 4 bottles. He does have a slight cellulitis of the right ankle, which is typical of the cellulitis caused by group B strep as opposed to group A strep. Given that there are 4/4 bottles positive, I do think an intravascular infection including infective endocarditis is on the differential diagnosis. His transthoracic echocardiogram showed mild aortic regurgitation. He has no prosthetic material present and no spine or joint tenderness. 2. Facial droop, undergoing neurologic evaluation. 3. History of transient ischemic attack. Could be that this infection has mimicked his previous stroke symptoms. 4. Diet-controlled diabetes. 5. Coronary artery disease and PCI. RECOMMENDATIONS: Stop vancomycin and cefepime. We will start ceftriaxone 1 g a day. He had followup blood cultures put in overnight, we will await those. He will need a transesophageal echocardiogram. If it is negative, he should continue ceftriaxone through the weekend and as long as the blood cultures are clear and he is significantly improving, he can change to Keflex 500 mg by mouth 3 times a day in order to complete a 14-day course of antibiotics. If the SANDRA is positive, he would need outpatient IV antibiotic ceftriaxone 1 g a day with weekly CBC, CMP, CRP for 42 days total from the time of negative blood cultures. HISTORY OF PRESENT ILLNESS: This is an 83-year-old man with prediabetes and history of TIA, admitted with confusion, malaise, lower extremity weakness bilaterally and right facial droop. His was alarmed and had him brought to the emergency room. Yesterday, he had a white count of 35,000, which is predominantly lymphocytes. He has been seen by Oncology who feels he has CLL stage 0. He does have elevated neutrophils as well and his white count is down to 25,000 today. He had a fever of 39.2 degrees overnight with tachypnea. He has no chest pain or cough and his breathing feels comfortable today. He does not have any pain present. No sores on his feet. No prosthetic material present. He had a transthoracic echocardiogram that showed trace aortic regurgitation with annular calcification and thickened valve leaflets. Today, he was up and walking little bit. He continues to deny pain. His thinks he is making more sense. Has not had an infection requiring hospitalization in the past. PAST MEDICAL HISTORY: 1. TIA. 2. Prediabetes. 3. Coronary artery disease and history of PCI in 1999. 4. Hyperlipidemia. ALLERGIES: No known drug allergies. MEDICATIONS: 1. Tylenol. 2. Aspirin. 3. Lipitor. 4. Enoxaparin. 5. Hydralazine. 6. Imdur. 7. Lisinopril. 8. Cefepime 2 g every 12 hours. 9. Vancomycin 1 g every 12 hours. SOCIAL HISTORY: He lives with his in [place]. He has no travel or sick contacts. FAMILY HISTORY: No recurrent infections. His mother had insulin-dependent diabetes and father had coronary artery disease. REVIEW OF SYSTEMS: All negative except as noted above in the history of present illness to a 14-point review. PHYSICAL EXAM: Vital Signs: Temperature of 36.8, heart rate 57, respiratory rate 16, blood pressure 150/55, oxygen saturation 99% on room air. In general, he is awake, not in distress. Neurologic: He is oriented x3. Follows all commands. Moves all of his extremities. There is no lower extremity clonus bilaterally. HEENT: There is no thrush or conjunctival hemorrhage. Neck is supple without mass. Heart is regular rate and rhythm without murmurs, rubs, or gallops. Lungs are clear to auscultation bilaterally. Abdomen: Soft, nontender, nondistended. There are bowel sounds present. Skin: There is no rash or splinter hemorrhages. Musculoskeletal: There is no spine tenderness to palpation. No joint synovitis. There is right lower leg 5 cm patch of warmth with erythema, slight tenderness. No crepitus. LABORATORY DATA: White blood cell count 25, hemoglobin 12, platelets 151. Creatinine is 0.9. Troponin was 0.05. Urinalysis showed blood and protein. Please see impressions and recommendations as outlined above, which I have discussed with Dr. Frazier. Thanks for asking me to see Mr. Gray in consultation. [id number]/[facility] #: [id number] [facility] CENTERPenelope
[2018-05-29] MEDS: cefTRIAXone(*) 1 GM in NS 0.9% 50 ML* 50 ML IVPB SCH (17:29)
[2018-05-30 06:05] LABS: Hematocrit 35 % (42-52); Hemoglobin 11.9 g/dl (14.0-18.0); Mean Corpuscular HGB Conc 34 g/dl (31-36); Mean Corpuscular Hemoglobin 31 pg (27-31); Mean Corpuscular Volume 91 fL (80-94); Mean Platelet Volume 7.6 um3 (7.4-10.4); Platelet Count 158 10^3/ul (150-450); Red Blood Count 3.82 10^6/ul (4.00-5.40); Red Cell Distribution Width 13 % (10.5-15); White Blood Count 20.2 10^3/ul (3.5-10.8)
[2018-05-30 06:22] LABS: EGFR Non-African American 88.9 (>60)
[2018-05-30 06:37] LABS: ABS Basophils 0 10^3/ul (0-0.2); ABS Eosinophils 0.1 10^3/ul (0-0.6); ABS Lymphocytes 14.1 10^3/ul (1.0-4.8); ABS Monocytes 0.7 10^3/ul (0-0.8); ABS Neutrophils 5.2 10^3/ul (1.5-7.7); ABS Nucleated RBC 0.1 10^3/ul; Eosinophil % 0.5 % (0-6); Lymphocyte % 69.9 % (25-47); Nucleated Red Blood Cells % 0.3
[2018-05-30] MEDS: Tamsulosin CAP* 0.4 MG PO SCH (07:37)
[2018-05-30] MEDS: Isosorbide Mononitrate ER TAB* 60 MG PO SCH (07:37)
[2018-05-30] MEDS: Lisinopril TAB* 10 MG PO SCH (07:37)
[2018-05-30] MEDS: Aspirin 81 mg CHEW TAB* 81 MG TAB.CHEW PO SCH (07:37)
[2018-05-30] MEDS: Atorvastatin* 20 MG TAB PO SCH (07:37)
[2018-05-30] MEDS: amLODIPine TAB* 5 MG PO SCH (09:17)
[2018-05-30] MEDS: Enoxaparin(*) 30 MG/0.3 ML SYR SUBCUT SCH (14:03)
[2018-05-30] MEDS ORDERED: Vancomycin Trough Check NOTE FOLLOW UP ONE (14:30)
--- NOTE | 2018-05-30 15:16 | CONS ---
NEUROLOGY FOLLOWUP NOTE: DATE OF FOLLOWUP: 05/30/18. LOCATION: He is an inpatient, room 431. HOSPITALIST: Dr. Frazier. CHIEF COMPLAINT: Left-sided weakness. INTERVAL HISTORY: Since yesterday, Mr. Gray feels he is stronger. His is present and agrees . His speech does not sound slurred, but it did yesterday according to both she and he. He was able to stand with a physical therapist and take some steps. He feels that his left arm is stronger as w ell, but not back to normal. He had a history of possible transient ischemic attack for which he was placed on Aggrenox several ye ars ago. He had confusion and generalized weakness. They do not remember any focal features to it. He denies headaches, change in vision, or numbness of his limbs. MEDICATIONS: Reviewed and he is on: 1. Aspirin 81 mg p.o. daily. 2. Atorvastatin 20 mg p.o. daily. 3. Ceftriaxone 1 g IV q.24 hours. 4. Lovenox 30 mg subcu q.24 hours. 5. Isosorbide 60 mg p.o. daily. 6. Lisinopril 40 mg p.o. daily. 7. Flomax 0.4 mg p.o. daily. 8. Amlodipine 10 mg p.o. daily. PHYSICAL EXAMINATION: He is well-nourished, and well-hydrated. Blood pressure most recently 148/53, it was as high as 210/70 earlier this morning. Heart rate is in the 50s, temperature 98.1 orally. Respiratory rate 20, oxygen saturation is 97% on room air. Heart is in a regular rate and rhythm wit h a grade 2/6 early systolic murmur, upper right sternal border. Carotid pulses are symmetrical, I d o not hear any cervical bruits. There may be a right subclavian bruit. Lungs are clear bilaterally. Neurological Exam: Pupils react equally from 3 to 2 mm. Eye movements are full. Visual feliciano ar e full to confrontation. Facial musculature appear symmetric. Palate and tongue appear normal, tong ue protrude in the midline and palate rises symmetrically. There is no dysarthria. Facial sensation to pin and light touch reported is less on the left side of the face. Sensory Exam: He reports dec reased temperature, pin, and light touch in the left leg and the left hand. On motor exam, he may arroyo ve a mild left pronator drift, but strength in the upper extremities is otherwise normal. He has goo d strength proximally, distally in the legs. Finger taps are slow and clumsy in the left hand. He i s alert and oriented and a pretty good historian. His provides most of the history. Language is fluent. LABORATORY DATA/DIAGNOSTIC STUDIES: Laboratory data is reviewed. I reviewed the MRI scan of the bra in, images as well the MR angiogram of the brain. He has a fairly extensive leukoaraiosis as well as evidence of a small acute infarction in the right insular cortex. Transthoracic echocardiogram is fairly unremarkable. Carotid ultrasound report shows no significant stenosis bilaterally. IMPRESSION: Impression is that of a small vessel right hemisphere infarction. In the setting of a s ystemic infection, which is a risk factor for stroke. He was on Aggrenox previously, but his MRI sca n reveals numerous areas of hemosiderin deposition consistent with possible amyloid angiopathy. I th erefore would not put him on dual antiplatelet therapy, but in fact we would switch him from Aggrenox to aspirin monotherapy. I agree with Dr. Dong in that regard. His blood pressure generally improv ed, although it appears somewhat labile. His systemic infection is being treated and he is scheduled for transesophageal echocardiogram to rule out endocarditis on Friday. I will continue to follow domo fonseca with you. [id number]/[facility] #: [id number]
--- NOTE | 2018-05-30 16:15 | PN ---
Subjective Date of Service: 05/30/18 Interval History: Pt seen and examined. Meds and labs reviewed. CC: Uncontrolled HTN ROS: Denied LIAO/dizziness, F/C, N/V, CP, SOB, increased cough, sputum production , abd pain, diarrhea, constipation, dysuria, myalgias, arthralgias, throat pain , and new skin lesions. The rest of the 14 point ROS are unremarkable. PHYSICAL EXAM: GEN APPEARANCE: Awake, not in acute distress HEENT: NC/AT, PERRLA, moist oral mucosa, (-) throat erythema NECK: Soft, supple, (-) cervical LAD, (-)JVD HEART: S1S2 WNL, RRR, No MRG CHEST: CTA, BL, GAE, No W/R/R ABD: Soft, ND/NT, NABS 4x Q EXT: No C/C/E SKIN: Warm to touch PSYCH: No active psychosis, hallucinations, depression, SI/HI Objective Active Medications: Acetaminophen (Tylenol Tab*) 650 mg PO Q6H PRN PRN Reason: FEVER/PAIN Last Admin: 05/29/18 00:39 Dose: 650 mg Amlodipine Besylate (Norvasc Tab*) 10 mg PO DAILY [facility] Last Admin: 05/30/18 09:17 Dose: 10 mg Aspirin (Aspirin 81 Mg Chew Tab*) 81 mg PO DAILY [facility] Last Admin: 05/30/18 07:37 Dose: 81 mg Atorvastatin Calcium (Lipitor*) 20 mg PO DAILY [facility] Last Admin: 05/30/18 07:37 Dose: 20 mg Enoxaparin Sodium (Lovenox(*)) 30 mg SUBCUT Q24H [facility] Last Admin: 05/30/18 14:03 Dose: 30 mg Hydralazine HCl (Apresoline Iv*) 10 mg IV SLOW PU Q6H PRN PRN Reason: BLOOD PRESSURE Ceftriaxone Sodium 1 gm/ (Sodium Chloride) 50 mls @ 200 mls/hr IVPB Q24H [facility] Last Admin: 05/29/18 17:29 Dose: 200 mls/hr Isosorbide Mononitrate (Imdur Er Tab*) 60 mg PO DAILY [facility] Last Admin: 05/30/18 07:37 Dose: 60 mg Lisinopril (Prinivil Tab*) 40 mg PO DAILY [facility] Last Admin: 05/30/18 07:37 Dose: 40 mg Tamsulosin HCl (Flomax Cap*) 0.4 mg PO DAILY [facility] Last Admin: 05/30/18 07:37 Dose: 0.4 mg Vital Signs - 8 hr 05/30/18 05/30/18 05/30/18 08:53 11:22 15:21 Temperature 98.1 F 98.0 F Pulse Rate 55 55 66 Respiratory 20 20 Rate Blood Pressure 154/55 148/53 131/56 (mmHg) O2 Sat by Pulse 97 97 97 Oximetry Oxygen Devices in Use Now: None Result Diagrams: 05/30/18 04:48 05/30/18 04:48 Microbiology and Other Data: Microbiology 05/28/18 10:54 Urine Culture - Final Urine 05/28/18 11:00 Aerobic Blood Culture - Preliminary Blood Venous Strep Agalactiae - (Group B) Anaerobic Blood Culture - Preliminary Strep Agalactiae - (Group B) Blood MRSA/MSSA (PCR) - Final Mrsa Negative S.aureus Negative 05/28/18 11:06 Aerobic Blood Culture - Preliminary Blood Venous Strep Agalactiae - (Group B) Anaerobic Blood Culture - Preliminary Strep Agalactiae - (Group B) Blood MRSA/MSSA (PCR) - Final Mrsa Negative S.aureus Negative Assess/Plan/Problems-Billing Assessment: - Patient Problems (1) CVA (cerebral vascular accident) Current Visit: Yes Status: Acute Code(s): I63.9 - CEREBRAL INFARCTION, UNSPECIFIED SNOMED Code(s): 902817565 Comment: -MRI non-contrast shows lacunar infarct -MRI with contrast reveals absence of intracranial mass -MRA of head shows absence of branch occlusion nor aneurysms -Continue with ASA for now -D/W Dr. Dong and Luis -2Decho: shows possible PFO; no comments on any vegetations -Carotid U/S shows no significant stenosis -Scheduled for SANDRA on Fridaywill discuss/consult with anesthesiology tomorrow in preparation SANDRA on Friday for support during the procedure PRN due to his comorbidities -Repeat Blood cultures on 05/29 (-) x 1 day -Will await both data from repeat BC and SANDRA scheduled on Friday to determine duration of abx therapy (2) Hypertension Current Visit: Yes Status: Acute Code(s): I10 - ESSENTIAL (PRIMARY) HYPERTENSION SNOMED Code(s): 99490799 Comment: -Added Amlodipine to his regimen and D/Cd IVF -Continue Lisinopril -Continue PRN anti-hypertensive meds (3) Cellulitis of right ankle Current Visit: Yes Status: Acute Code(s): L03.115 - CELLULITIS OF RIGHT LOWER LIMB SNOMED Code(s): 86612922 Comment: -Likely source of bacteremia per Dr. Smith -Continue Rocephin due to S. agalactiae bacteremia -Repeat Blood cultures on 05/29 (-) x 1 day (4) Streptococcal bacteremia Current Visit: Yes Status: Acute Code(s): R78.81 - BACTEREMIA; B95.5 - UNSP STREPTOCOCCUS THE CAUSE OF DISEASES CLASSD [facility] SNOMED Code(s): 962921150392 Comment: -S. agalactiae possible source is Right ankle -Would need SANDRA on Fridaydiscussed with Dr. Smith -Please see above discussion (5) Leukocytosis Current Visit: Yes Status: Acute Code(s): D72.829 - ELEVATED WHITE BLOOD CELL COUNT, UNSPECIFIED SNOMED Code(s): 794103313 Comment: -Likely due to bacteremia described above concomitant with now confirmed CLL suspected on admission per his history -Appreciate Dr. Garcia input -Pt clarified with Dr. 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 Grover -Given pt is otherwise asymptomatic, pt clinically appears to be stage 0 -Continue watchful waiting -Awaiting results of flow cytometry (6) DVT prophylaxis Current Visit: Yes Status: Acute Code(s): WAJ6652 - SNOMED Code(s): 542585892 Comment: -Continue low-dose Lovenox Status and Disposition: -As above
[2018-05-30] MEDS: cefTRIAXone(*) 1 GM in NS 0.9% 50 ML* 50 ML IVPB SCH (16:31)
[2018-05-30] MEDS: hydrALAZINE IV* 20 MG/ML VIAL IV SLOW PU PRN (23:49)
[2018-05-31 05:04] LABS: Hematocrit 37 % (42-52); Hemoglobin 12.6 g/dl (14.0-18.0); Mean Corpuscular HGB Conc 34 g/dl (31-36); Mean Corpuscular Hemoglobin 31 pg (27-31); Mean Corpuscular Volume 91 fL (80-94); Mean Platelet Volume 7.1 um3 (7.4-10.4); Platelet Count 174 10^3/ul (150-450); Red Blood Count 4.06 10^6/ul (4.00-5.40); Red Cell Distribution Width 13 % (10.5-15)
[2018-05-31 05:22] LABS: EGFR Non-African American 87.7 (>60)
[2018-05-31 05:42] LABS: ABS Basophils 0 10^3/ul (0-0.2); ABS Eosinophils 0.2 10^3/ul (0-0.6); ABS Lymphocytes 13.8 10^3/ul (1.0-4.8); ABS Monocytes 0.6 10^3/ul (0-0.8); ABS Neutrophils 4.4 10^3/ul (1.5-7.7); ABS Nucleated RBC 0.1 10^3/ul; Eosinophil % 1.1 % (0-6); Lymphocyte % 72.5 % (25-47); Nucleated Red Blood Cells % 0.3
[2018-05-31] MEDS: Atorvastatin* 20 MG TAB PO SCH (07:16)
[2018-05-31] MEDS: amLODIPine TAB* 5 MG PO SCH (07:16)
[2018-05-31] MEDS: Aspirin 81 mg CHEW TAB* 81 MG TAB.CHEW PO SCH (07:16)
[2018-05-31] MEDS: Lisinopril TAB* 10 MG PO SCH (07:16)
[2018-05-31] MEDS: Isosorbide Mononitrate ER TAB* 60 MG PO SCH (07:16)
[2018-05-31] MEDS: Tamsulosin CAP* 0.4 MG PO SCH (07:16)
--- NOTE | 2018-05-31 13:25 | PN ---
Subjective Date of Service: 05/31/18 Interval History: Pt seen and examined. Meds and labs reviewed. CC: N/A ROS: Denied LIAO/dizziness, F/C, N/V, CP, SOB, increased cough, sputum production , abd pain, diarrhea, constipation, dysuria, myalgias, arthralgias, throat pain , and new skin lesions. The rest of the 14 point ROS are unremarkable. PHYSICAL EXAM: GEN APPEARANCE: Awake, not in acute distress HEENT: NC/AT, PERRLA, moist oral mucosa, (-) throat erythema NECK: Soft, supple, (-) cervical LAD, (-)JVD HEART: S1S2 WNL, RRR, No MRG CHEST: CTA, BL, GAE, No W/R/R ABD: Soft, ND/NT, NABS 4x Q EXT: No C/C/E SKIN: Warm to touch PSYCH: No active psychosis, hallucinations, depression, SI/HI Objective Active Medications: Acetaminophen (Tylenol Tab*) 650 mg PO Q6H PRN PRN Reason: FEVER/PAIN Last Admin: 05/29/18 00:39 Dose: 650 mg Amlodipine Besylate (Norvasc Tab*) 10 mg PO DAILY [facility] Last Admin: 05/31/18 07:16 Dose: 10 mg Aspirin (Aspirin 81 Mg Chew Tab*) 81 mg PO DAILY [facility] Last Admin: 05/31/18 07:16 Dose: 81 mg Atorvastatin Calcium (Lipitor*) 20 mg PO DAILY [facility] Last Admin: 05/31/18 07:16 Dose: 20 mg Enoxaparin Sodium (Lovenox(*)) 30 mg SUBCUT Q24H [facility] Last Admin: 05/30/18 14:03 Dose: 30 mg Hydralazine HCl (Apresoline Iv*) 10 mg IV SLOW PU Q6H PRN PRN Reason: BLOOD PRESSURE Last Admin: 05/30/18 23:49 Dose: 10 mg Ceftriaxone Sodium 1 gm/ (Sodium Chloride) 50 mls @ 200 mls/hr IVPB Q24H [facility] Last Admin: 05/30/18 16:31 Dose: 200 mls/hr Isosorbide Mononitrate (Imdur Er Tab*) 60 mg PO DAILY [facility] Last Admin: 05/31/18 07:16 Dose: 60 mg Lisinopril (Prinivil Tab*) 40 mg PO DAILY [facility] Last Admin: 05/31/18 07:16 Dose: 40 mg Tamsulosin HCl (Flomax Cap*) 0.4 mg PO DAILY [facility] Last Admin: 05/31/18 07:16 Dose: 0.4 mg Vital Signs - 8 hr 05/31/18 05/31/18 05/31/18 07:11 07:15 09:05 Temperature 98.9 F Pulse Rate 52 Respiratory 16 17 Rate Blood Pressure 177/56 116/58 (mmHg) O2 Sat by Pulse 99 Oximetry 05/31/18 12:01 Temperature 97.5 F Pulse Rate 66 Respiratory 20 Rate Blood Pressure 148/58 (mmHg) O2 Sat by Pulse 99 Oximetry Oxygen Devices in Use Now: None Result Diagrams: 05/31/18 04:59 05/31/18 04:59 Microbiology and Other Data: Microbiology 05/28/18 10:54 Urine Culture - Final Urine 05/28/18 11:00 Aerobic Blood Culture - Preliminary Blood Venous Strep Agalactiae - (Group B) Anaerobic Blood Culture - Preliminary Strep Agalactiae - (Group B) Blood MRSA/MSSA (PCR) - Final Mrsa Negative S.aureus Negative 05/28/18 11:06 Aerobic Blood Culture - Preliminary Blood Venous Strep Agalactiae - (Group B) Anaerobic Blood Culture - Preliminary Strep Agalactiae - (Group B) Blood MRSA/MSSA (PCR) - Final Mrsa Negative S.aureus Negative Assess/Plan/Problems-Billing Assessment: - Patient Problems (1) CVA (cerebral vascular accident) Current Visit: Yes Status: Acute Code(s): I63.9 - CEREBRAL INFARCTION, UNSPECIFIED SNOMED Code(s): 450679441 Comment: -MRI non-contrast shows lacunar infarct -MRI with contrast reveals absence of intracranial mass -MRA of head shows absence of branch occlusion nor aneurysms -Continue with ASA for now -D/W Dr. Zuniga -2Decho: shows possible PFO; no comments on any vegetations -Carotid U/S shows no significant stenosis -Scheduled for SANDRA on tomorrow -Repeat Blood cultures on 05/29 (-) x 1 day -Will await both data from repeat BC and SANDRA scheduled tomorrow to determine duration of abx therapy (2) Hypertension Current Visit: Yes Status: Acute Code(s): I10 - ESSENTIAL (PRIMARY) HYPERTENSION SNOMED Code(s): 44348129 Comment: -Improved -Continue Lisinopril and Amlodipine -Continue PRN anti-hypertensive meds (3) Cellulitis of right ankle Current Visit: Yes Status: Acute Code(s): L03.115 - CELLULITIS OF RIGHT LOWER LIMB SNOMED Code(s): 99220967 Comment: -Likely source of bacteremia per Dr. Smith -Continue Rocephin due to S. agalactiae bacteremia -Repeat Blood cultures on 05/29 (-) x 2 days (4) Streptococcal bacteremia Current Visit: Yes Status: Acute Code(s): R78.81 - BACTEREMIA; B95.5 - UNSP STREPTOCOCCUS [facility] SN[facility] Code(s): 620362272773 Comment: -S. agalactiae possible source is Right ankle -Would need SANDRA tomorrowdiscussed with Dr. Smith -Please see above discussion (5) Leukocytosis Current Visit: Yes Status: Acute Code(s): D72.829 - ELEVATED WHITE BLOOD CELL COUNT, UNSPECIFIED SNOMED Code(s): 571308806 Comment: -Likely due to bacteremia described above concomitant with now confirmed CLL suspected on admission per his history -Appreciate Dr. Garcia input -Pt clarified with Dr. 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 Grover -Given pt is otherwise asymptomatic, pt clinically appears to be stage 0 -Continue watchful waiting -Awaiting results of flow cytometry (6) DVT prophylaxis Current Visit: Yes Status: Acute Code(s): VDL9969 - SNOMED Code(s): 676068581 Comment: -Continue low-dose Lovenox Status and Disposition: -As above
[2018-05-31] MEDS: Enoxaparin(*) 30 MG/0.3 ML SYR SUBCUT SCH (14:39)
--- NOTE | 2018-05-31 16:07 | PN ---
NEUROLOGY FOLLOWUP NOTE: DATE OF FOLLOWUP: 05/31/18 LOCATION: He is in room 431. HOSPITALIST: Dr. Frazier. CHIEF COMPLAINT: Left-sided weakness. INTERVAL HISTORY: Since yesterday, Mr. Gray feels well. His thinks his left - sided weakness is improving and his agrees. He has not been walking today. He notes his hand is still clumsy, but no worse if not somewhat better. He has no problems with numbness or pain. No problems with vision or headache. MEDICATIONS: Reviewed and he remains on: 1. Aspirin 81 mg p.o. daily. 2. Amlodipine 10 mg p.o. daily. 3. Atorvastatin 20 mg p.o. daily. 4. Ceftriaxone 1 g q.24 hours IV. 5. Lovenox 30 mg subcutaneous q.24 hours. 6. Hydralazine 10 mg IV p.r.n. q.6 hours, hypertension. 7. Imdur 60 mg p.o. daily. 8. Lisinopril 40 mg p.o. daily. 9. Tamsulosin 0.4 mg p.o. daily. PHYSICAL EXAM: He is well nourished and well hydrated. Temperature 98.4, most recent blood pressure 116/58, heart rate is in the 50s. Oxygen saturation is 99 % on room air. Neurological Exam: Eye movements are full. Visual feliciano are full to confrontation. There is minimal flattening of the left nasolabial fold. Speech is clear without dysarthria. Motor exam reveals normal strength proximally and distally in the upper extremities. There is no drift today. Finger taps are slow and clumsy in the left hand relative to the right. Heel-to -wu maneuver is slightly dysmetric bilaterally. He has good strength proximally in the lower extremities, he has grade 4 left ankle dorsiflexor weakness. I did not attempt to ambulate him. He is alert and oriented. He is a pretty good historian with some memory impairment. Language is fluent. LABORATORY DATA: From today notable for chemistry profile with a sodium of 133 , glucose 146. CBC today shows white blood cell count down to 19.0 with 72.5% lymphocytes. IMPRESSION AND PLAN: Impression is that of improving right hemisphere subcortical small vessel infarction. He is scheduled for a transesophageal echocardiogram tomorrow to make sure that there is no evidence of endocarditis. He is on ceftriaxone for his group B strep bacteremia. I recommend continuing the aspirin 81 mg for his antiplatelet therapy. If he does have endocarditis, recommendations are for antibacterial treatment rather than anticoagulation. [id number]/[facility] #: [id number] PHILIPP
[2018-05-31] MEDS: cefTRIAXone(*) 1 GM in NS 0.9% 50 ML* 50 ML IVPB SCH (16:49)
[2018-05-31] MEDS: hydrALAZINE IV* 20 MG/ML VIAL IV SLOW PU PRN (23:59)
[2018-06-01] MEDS ORDERED: Calcium Gluconate INJ* 2 GM in NS 0.9% 100 ML* 100 ML IVPB ONE (08:22)
[2018-06-01] MEDS ORDERED: Calcium Gluconate INJ* 2 GM in NS 0.9% 100 ML* 100 ML IV ONE (09:00)
[2018-06-01] MEDS: Lisinopril TAB* 10 MG PO SCH (09:16)
[2018-06-01] MEDS: Atorvastatin* 20 MG TAB PO SCH (09:17)
[2018-06-01] MEDS: amLODIPine TAB* 5 MG PO SCH (09:19)
[2018-06-01] MEDS: Aspirin 81 mg CHEW TAB* 81 MG TAB.CHEW PO SCH (09:19)
[2018-06-01] MEDS: Isosorbide Mononitrate ER TAB* 60 MG PO SCH (09:19)
[2018-06-01] MEDS: Tamsulosin CAP* 0.4 MG PO SCH (10:21)
[2018-06-01] MEDS ORDERED: Lidocaine 2% VISCOUS* 15 ML UDC ONE (10:42)
[2018-06-01] MEDS ORDERED: Naloxone* 0.4 MG/ML 1 ML VIAL ONE (10:42)
[2018-06-01] MEDS ORDERED: Midazolam* 1 MG/ML 10 ML VIAL (10 MG) ONE (10:42)
[2018-06-01] MEDS ORDERED: Flumazenil* 0.1 MG/ML 5 ML MDV ONE (10:42)
[2018-06-01] MEDS ORDERED: fentaNYL* 50 MCG/ML 2 ML VIAL (100 MCG VIAL) ONE (10:42)
--- NOTE | 2018-06-01 14:40 | TEE ---
Patient: SERGIO CHAMBERS [facility] Rec#: [id number] : 1935 Date: 06/01/2018 Age: 83y Height: 175.3 cm / 69.0 in Weight: 76.2 kg / 167.9 lbs Sex: M BSA: 1.9 Room#: 431 Admit Date#: 05/28/2018 Type: Inpatient Referring: Destin Frazier Performing: Parrish Cooper MD Reading: Parrish Cooper MD Exercise Physiology Professor: Usha Martel RN RDCS Nurse: Bisi Elizondo RN CC: Eldon Sullivan MD Transesophageal Echocardiogram Indication: CVA, bacteremia BP: 161/75 HR: 70 Rhythm: NSR Findings Left Ventricle: The left ventricular chamber size is normal. Global left ventricular wall motion and contractility are within normal limits. There is normal left ventricular systolic function. The estimated ejection fraction is 60-65%. There is an E to A reversal in the mitral valve flow pattern suggestive of diastolic dysfunction. Left Atrium: The left atrium is mildly dilated. No thrombus is visualized within the left atrium. There is no thrombus visualized in the left atrial appendage. Right Ventricle: The right ventricle is not well visualized. The right ventricle is mildly dilated. The right ventricular global systolic function is normal. Right Atrium: The right atrium is not well visualized. The right atrium is mildly dilated. A patent foramen ovale is demonstrated by color Doppler and agitated contrast. There is evidence of an atrial septal aneurysm. Aortic Valve: The aortic valve is trileaflet. The aortic valve leaflets are mildly thickened. There is a trace of aortic regurgitation. There is no evidence of aortic stenosis. There is no aortic vegetation present. Mitral Valve: The mitral valve leaflets are mildly thickened. There is mild mitral regurgitation. There is no evidence of mitral stenosis. No vegetation is observed on the mitral valve. Tricuspid Valve: The tricuspid valve structure is not well visualized. There is mild tricuspid regurgitation. No vegetation is observed on the tricuspid valve. Pulmonic Valve: The pulmonic valve appears normal. There is a trace pulmonic regurgitation. No vegetation is observed on the pulmonic valve. Pericardium: There is no significant pericardial effusion. Aorta: There is no dilatation of the ascending aorta. There is no dilation of the aortic root. There is mild atherosclerotic plaque seen in the aorta. Pulmonary Artery: The main pulmonary artery appears normal. Venous: The inferior vena cava appears normal. The pulmonary veins appear normal. 2 of 4 pulmonary veins were visualized. The superior vena cava appears normal. SANDRA Procedures: All standard views were attempted within the limitations of patient tolerance and safety. History and physical as well as labs were reviewed. The patient was in a fasting state. Risks and benefits of the procedure, including alternatives, were discussed and written informed consent was obtained. The patient and/or their health care apprenticeship training representative expressed understanding of the procedure, risks and benefits. Baseline and continuous monitoring of blood pressure, heart rate, pulse oximetry and heart rhythm was performed throughout the procedure. The appropriate time-out procedure was performed as per [facility] protocol. The patient was placed in the left lateral decubitus position. The patient's posterior pharynx was anesthetized with 20ml of 2% viscous lidocaine. The patient received IV Midazolam with a total dose of 2 mg. The patient received IV Fentanyl with a total dose of 25 mcg. An oral bite block was inserted for protection of oral dentition. The multiplane transesophageal echocardiogram probe was inserted through the posterior oropharynx and advanced into the esophagus without difficulty. Multiple 2D images were obtained of the heart and its related structures. Color flow Doppler was used for evaluation. Spectral Doppler was also used. The atrial septum was interrogated with color flow Doppler. Transgastric imaging was attempted but was unable to be obtained. At the conclusion of the procedure the probe was removed with continuous suction without complications. The patient tolerated the procedure with no apparent complications. Contrast: Normal saline was used as contrast for the bubble study. Image 40. Conclusions Global left ventricular wall motion and contractility are within normal limits. There is normal left ventricular systolic function. The estimated ejection fraction is 60-65%. There is no thrombus visualized in the left atrial appendage. A patent foramen ovale is demonstrated by color Doppler and agitated contrast. There is a trace of aortic regurgitation. There is no evidence of aortic stenosis. There is mild mitral regurgitation. No vegetation is observed on the mitral valve. There is no aortic vegetation present. There is mild tricuspid regurgitation. No vegetation is observed on the tricuspid valve. There is no significant pericardial effusion. Measurements Name Value Normal Range Aortic Annulus 2 cm (1.4 - 2.6) Ao root diameter (2D) 3.4 cm (2.1 - 3.5) Ascending Ao 2.9 cm (2.1 - 3.4) Name Value Normal Range MV E-wave Vmax 0.4 m/sec - MV deceleration time 326 msec - MV A-wave Vmax 0.88 m/sec - MV E:A ratio 0.45 ratio -
[2018-06-01] MEDS: Enoxaparin(*) 30 MG/0.3 ML SYR SUBCUT SCH (14:50)
--- NOTE | 2018-06-01 16:03 | PN ---
Subjective Date of Service: 06/01/18 Interval History: Pt seen and examined. Meds and labs reviewed. S/P recent SANDRA this AM. Please see discussion below CC: N/A. Pt and very satisfied with [place] [facility] ROS: Denied LIAO/dizziness, F/C, N/V, CP, SOB, increased cough, sputum production , abd pain, diarrhea, constipation, dysuria, myalgias, arthralgias, throat pain , and new skin lesions. The rest of the 14 point ROS are unremarkable. PHYSICAL EXAM: GEN APPEARANCE: Awake, not in acute distress HEENT: NC/AT, PERRLA, moist oral mucosa, (-) throat erythema NECK: Soft, supple, (-) cervical LAD, (-)JVD HEART: S1S2 WNL, RRR, No MRG CHEST: CTA, BL, GAE, No W/R/R ABD: Soft, ND/NT, NABS 4x Q EXT: No C/C/R. ankle inflammation/cellulitis, improved SKIN: Warm to touch PSYCH: No active psychosis, hallucinations, depression, SI/HI Objective Active Medications: Acetaminophen (Tylenol Tab*) 650 mg PO Q6H PRN PRN Reason: FEVER/PAIN Last Admin: 05/29/18 00:39 Dose: 650 mg Amlodipine Besylate (Norvasc Tab*) 10 mg PO DAILY [facility] Last Admin: 06/01/18 09:19 Dose: 10 mg Aspirin (Aspirin 81 Mg Chew Tab*) 81 mg PO DAILY [facility] Last Admin: 06/01/18 09:19 Dose: 81 mg Atorvastatin Calcium (Lipitor*) 20 mg PO DAILY [facility] Last Admin: 06/01/18 09:17 Dose: 20 mg Enoxaparin Sodium (Lovenox(*)) 30 mg SUBCUT Q24H [facility] Last Admin: 06/01/18 14:50 Dose: 30 mg Hydralazine HCl (Apresoline Iv*) 10 mg IV SLOW PU Q6H PRN PRN Reason: BLOOD PRESSURE Last Admin: 05/31/18 23:59 Dose: 10 mg Ceftriaxone Sodium 1 gm/ (Sodium Chloride) 50 mls @ 200 mls/hr IVPB Q24H [facility] Last Admin: 05/31/18 16:49 Dose: 200 mls/hr Isosorbide Mononitrate (Imdur Er Tab*) 60 mg PO DAILY [facility] Last Admin: 06/01/18 09:19 Dose: 60 mg Lisinopril (Prinivil Tab*) 40 mg PO DAILY [facility] Last Admin: 06/01/18 09:16 Dose: 40 mg Tamsulosin HCl (Flomax Cap*) 0.4 mg PO DAILY [facility] Last Admin: 06/01/18 10:21 Dose: Not Given Vital Signs - 8 hr 06/01/18 06/01/18 06/01/18 12:14 12:28 13:49 Temperature 97.4 F 97.4 F 97.1 F Pulse Rate 54 52 71 Respiratory 16 16 Rate Blood Pressure 141/45 141/45 135/55 (mmHg) O2 Sat by Pulse 98 97 99 Oximetry 06/01/18 06/01/18 14:52 15:19 Temperature 97.2 F 97.6 F Pulse Rate 83 74 Respiratory 16 18 Rate Blood Pressure 142/63 124/54 (mmHg) O2 Sat by Pulse 98 98 Oximetry Oxygen Devices in Use Now: None Result Diagrams: 05/31/18 04:59 05/31/18 04:59 Microbiology and Other Data: Microbiology 05/28/18 10:54 Urine Culture - Final Urine 05/28/18 11:00 Aerobic Blood Culture - Preliminary Blood Venous Strep Agalactiae - (Group B) Anaerobic Blood Culture - Preliminary Strep Agalactiae - (Group B) Blood MRSA/MSSA (PCR) - Final Mrsa Negative S.aureus Negative 05/28/18 11:06 Aerobic Blood Culture - Preliminary Blood Venous Strep Agalactiae - (Group B) Anaerobic Blood Culture - Preliminary Strep Agalactiae - (Group B) Blood MRSA/MSSA (PCR) - Final Mrsa Negative S.aureus Negative Assess/Plan/Problems-Billing Assessment: - Patient Problems (1) CVA (cerebral vascular accident) Current Visit: Yes Status: Acute Code(s): I63.9 - CEREBRAL INFARCTION, UNSPECIFIED SNOMED Code(s): 179933179 Comment: -MRI non-contrast shows lacunar infarct -MRI with contrast reveals absence of intracranial mass -MRA of head shows absence of branch occlusion nor aneurysms -Continue with ASA for now -D/W Dr. Zuniga -2Decho: shows possible PFO; no comments on any vegetations -Carotid U/S shows no significant stenosis -SANDRA did not reveal any vegetations and found to have small PFO -Repeat Blood cultures on 05/29 (-) x 3 day (2) Hypertension Current Visit: Yes Status: Acute Code(s): I10 - ESSENTIAL (PRIMARY) HYPERTENSION SNOMED Code(s): 14216854 Comment: -Improved -Continue Lisinopril and Amlodipine -Continue PRN anti-hypertensive meds (3) Cellulitis of right ankle Current Visit: Yes Status: Acute Code(s): L03.115 - CELLULITIS OF RIGHT LOWER LIMB SNOMED Code(s): 62795087 Comment: -Likely source of bacteremia per Dr. Smith -Continue Rocephin due to S. agalactiae bacteremia, day #4 -Repeat Blood cultures on 05/29 (-) x 3 days (4) Streptococcal bacteremia Current Visit: Yes Status: Acute Code(s): R78.81 - BACTEREMIA; B95.5 - UNSP STREPTOCOCCUS THE CAUSE OF DISEASES CLASSD [facility] SNOMED Code(s): 565211249365 Comment: -S. agalactiae possible source is Right ankle -Would need SANDRA tomorrowdiscussed with Dr. Smith -Day #01/31 Abx therapyif to be D/Cd in AM post SANDRA, may convert to Keflex 500 mg PO TID to complete 14 day treatment therapy, then F/U with Dr. Smith when back in [facility] (he will be back in [place] on 06/08) -Please see above discussion (5) Leukocytosis Current Visit: Yes Status: Acute Code(s): D72.829 - ELEVATED WHITE BLOOD CELL COUNT, UNSPECIFIED SNOMED Code(s): 756371661 Comment: -Likely due to bacteremia described above concomitant with now confirmed CLL suspected on admission per his history -Appreciate Dr. Garcia input -Pt clarified with Dr. 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 Grover -Given pt is otherwise asymptomatic, pt clinically appears to be stage 0 -Continue watchful waiting -Awaiting results of flow cytometry (6) DVT prophylaxis Current Visit: Yes Status: Acute Code(s): HXC5201 - SNOMED Code(s): 488672562 Comment: -Continue low-dose Lovenox Status and Disposition: -Possible D/C in AM
[2018-06-01] MEDS: cefTRIAXone(*) 1 GM in NS 0.9% 50 ML* 50 ML IVPB SCH (17:43)
[2018-06-02 05:24] LABS: Hematocrit 37 % (42-52); Hemoglobin 12.5 g/dl (14.0-18.0); Mean Corpuscular HGB Conc 34 g/dl (31-36); Mean Corpuscular Hemoglobin 31 pg (27-31); Mean Corpuscular Volume 92 fL (80-94); Mean Platelet Volume 6.9 um3 (7.4-10.4); Platelet Count 219 10^3/ul (150-450); Red Blood Count 4.03 10^6/ul (4.00-5.40); Red Cell Distribution Width 12 % (10.5-15); White Blood Count 26.8 10^3/ul (3.5-10.8)
[2018-06-02 05:38] LABS: EGFR Non-African American 86.5 (>60)
[2018-06-02] MEDS: Acetaminophen TAB* 325 MG PO PRN (05:41)
[2018-06-02] MEDS: Aspirin 81 mg CHEW TAB* 81 MG TAB.CHEW PO SCH (10:03)
[2018-06-02] MEDS: Atorvastatin* 20 MG TAB PO SCH (10:04)
[2018-06-02] MEDS: Tamsulosin CAP* 0.4 MG PO SCH (10:05)
[2018-06-02] MEDS: amLODIPine TAB* 5 MG PO SCH (10:06)
[2018-06-02] MEDS: Isosorbide Mononitrate ER TAB* 60 MG PO SCH (10:07)
[2018-06-02] MEDS: Lisinopril TAB* 10 MG PO SCH (10:08)
--- NOTE | 2018-06-02 14:12 | PN ---
Subjective Date of Service: 06/02/18 Interval History: HOSPITALIST PROGRESS NOTE Patient seen and examined at bedside. He feels well today, offers no complaints. Family History: Unchanged from Admission Social History: Unchanged from Admission Past Medical History: Unchanged from Admission Objective Active Medications: Acetaminophen (Tylenol Tab*) 650 mg PO Q6H PRN PRN Reason: FEVER/PAIN Last Admin: 06/02/18 05:41 Dose: 650 mg Amlodipine Besylate (Norvasc Tab*) 10 mg PO DAILY [facility] Last Admin: 06/02/18 10:06 Dose: 10 mg Aspirin (Aspirin 81 Mg Chew Tab*) 81 mg PO DAILY [facility] Last Admin: 06/02/18 10:03 Dose: 81 mg Atorvastatin Calcium (Lipitor*) 20 mg PO DAILY [facility] Last Admin: 06/02/18 10:04 Dose: 20 mg Enoxaparin Sodium (Lovenox(*)) 30 mg SUBCUT Q24H [facility] Last Admin: 06/01/18 14:50 Dose: 30 mg Hydralazine HCl (Apresoline Iv*) 10 mg IV SLOW PU Q6H PRN PRN Reason: BLOOD PRESSURE Last Admin: 05/31/18 23:59 Dose: 10 mg Ceftriaxone Sodium 1 gm/ (Sodium Chloride) 50 mls @ 200 mls/hr IVPB Q24H [facility] Last Admin: 06/01/18 17:43 Dose: 200 mls/hr Isosorbide Mononitrate (Imdur Er Tab*) 60 mg PO DAILY [facility] Last Admin: 06/02/18 10:07 Dose: 60 mg Lisinopril (Prinivil Tab*) 40 mg PO DAILY [facility] Last Admin: 06/02/18 10:08 Dose: 40 mg Tamsulosin HCl (Flomax Cap*) 0.4 mg PO DAILY [facility] Last Admin: 06/02/18 10:05 Dose: 0.4 mg Vital Signs - 8 hr 06/02/18 06/02/18 06/02/18 06:55 07:11 07:18 Temperature 98.3 F 98.8 F Pulse Rate 52 52 Respiratory 16 16 16 Rate Blood Pressure 159/54 154/56 (mmHg) O2 Sat by Pulse 98 98 Oximetry 06/02/18 11:11 Temperature 98.5 F Pulse Rate 71 Respiratory 18 Rate Blood Pressure 130/60 (mmHg) O2 Sat by Pulse 97 Oximetry Oxygen Devices in Use Now: None Appearance: Pleasant gentleman sitting up in a chair in NAD. Eyes: No Scleral Icterus Ears/Nose/Mouth/Throat: Mucous Membranes Moist Neck: Trachea Midline Respiratory: Symmetrical Chest Expansion and Respiratory Effort, Clear to Auscultation Cardiovascular: RRR - Normal S1 and S2 Extremities: - - Right wu abrasion with minimal erythema Neurological: Alert and Oriented x 3, - - Minimal flattening of left nasolabial fold, minimal left hemiparesis with left hand clumsiness Result Diagrams: 06/02/18 05:16 06/02/18 05:16 Assess/Plan/Problems-Billing Assessment: Mr Gray is an 83yo M with PMH of CAD s/p UT/stents, TIA, HTN, HLD, CLL, who presented to ED with c/o left sided weakness, found to have a lacunar CVA, complicated by RLE cellulitis and strep agalactiae septicemia. - Patient Problems (1) CVA (cerebral vascular accident) Comment: - MRI without contrast showed lacunar infarct at the right temporal insula. - MRI with contrast showed no intracranial mass. - MRA of head showed no branch occlusion or aneurysms. - Echo showed EF 60-65% with possible PFO; also signs of RV dilation and pressure overload - will check CTA chest/LE doppler to r/o paradoxical embolus. - Carotid U/S showed no significant stenosis. - Was on Aspirin and Aggrenox prior to admission, now on Aspirin only. Will d/w Neurology if DAPT indicated. - Continue Atorvastatin. (2) Cellulitis of right ankle Comment: - Probable source of septicemia. - Continue Ceftriaxone. - Repeat blood cultures. (3) Streptococcal septicemia Comment: - See above. - Transesophageal echo negative for vegetations. - ID input appreciated - continue Ceftriaxone, repeat blood cultures. If BC negative, will d/c on cephalexin to complete 14 days of treatment. (4) Leukocytosis Comment: - Heme input appreciated - has CLL stage 0, infection likely also playing a role. (5) Hypertension Comment: - Controlled. - Continue Lisinopril and Amlodipine. (6) CAD (coronary artery disease) Comment: - Stable. - Continue Aspirin, Imdur, and Atorvastatin. (7) DVT prophylaxis Comment: - Lovenox. Status and Disposition: Inpatient.
[2018-06-02] MEDS ORDERED: Enoxaparin(*) 40 MG/0.4 ML SYR SUBCUT SCH (15:00)
[2018-06-02] MEDS ORDERED: Iohexol 350* (CONTRAST) 500 ML MDV IV ONE (15:15)
--- NOTE | 2018-06-02 16:01 | RAD ---
HISTORY: CVA, PFO, r/o paradoxical embolus COMPARISONS: None relevant TECHNIQUE: Multiple transverse and longitudinal ultrasound images were obtained of the bilateral lower extremities from the level of the common femoral vein inferiorly through to the infrapopliteal veins using grayscale, color Doppler, and spectral Doppler imaging with and without compression and with augmentation. FINDINGS: VEINS: The venous system of the bilateral lower extremities is compressible throughout its course, with normal flow on color Doppler imaging and normal response to augmentation on spectral Doppler imaging. SOFT TISSUES: There are typically benign-appearing lymph nodes noted within the right inguinal region. OTHER FINDINGS: There are 2 complex fluid collections within the left popliteal fossa measuring 6.9 x 1.2 x 2 cm and 6.4 x 0.8 x 2 cm in size respectively. Also noted is calcific atherosclerotic disease .. IMPRESSION: 1. NO RIGHT LOWER EXTREMITY DEEP VEIN THROMBOSIS. 2. NO LEFT LOWER EXTREMITY DEEP VEIN THROMBOSIS. 3. COMPLEX FLUID COLLECTIONS WITHIN THE LEFT POPLITEAL FOSSA MOST CONSISTENT WITH MENENDEZ'S CYST. 4. ATHEROSCLEROSIS.
--- NOTE | 2018-06-02 16:23 | RAD ---
INDICATION: Chest pain. Short of breath. Evaluate for pulmonary embolus. COMPARISON: Chest x-ray May 28, 2018 TECHNIQUE: Axial source images were obtained from the thoracic inlet to the hemidiaphragms following administration of [address] angiographic technique was utilized. Coronal and sagittal reconstructed images were acquired. CHEST FINDINGS: Neck/thyroid: The visualized neck to include the thyroid appear normal. Chest wall: There are no acute abnormalities of the bony thorax or chest wall. There is no supraclavicular, infraclavicular, or axillary lymphadenopathy. Lungs : There are no pulmonary parenchymal masses or infiltrates. The pulmonary interstitium appears normal. There are no endobronchial lesions. Cardiomediastinal structures: There is no CT evidence of acute pulmonary embolic disease. The heart is normal in size. There is no pericardial effusion. There is no evidence of aortic aneurysm or dissection. There is no mediastinal or hilar adenopathy. The esophagus appears normal. Pleura : There are no pleural-based masses or effusions. Other: None. IMPRESSION: NO CT EVIDENCE OF ACUTE PULMONARY EMBOLIC DISEASE. LUNGS CLEAR.
[2018-06-02] MEDS: cefTRIAXone(*) 1 GM in NS 0.9% 50 ML* 50 ML IVPB SCH (17:06)
[2018-06-02] MEDS: Dipyridamole/Aspirin 25/200* CAP.ER PO SCH (21:13)
[2018-06-03 07:48] VITALS: BP 160/48
[2018-06-03] MEDS: Lisinopril TAB* 10 MG PO SCH (08:38)
[2018-06-03] MEDS: Tamsulosin CAP* 0.4 MG PO SCH (08:39)
[2018-06-03] MEDS: amLODIPine TAB* 5 MG PO SCH (08:40)
[2018-06-03] MEDS: Aspirin 81 mg CHEW TAB* 81 MG TAB.CHEW PO SCH (08:40)
[2018-06-03] MEDS: Dipyridamole/Aspirin 25/200* CAP.ER PO SCH (08:40)
[2018-06-03] MEDS: Atorvastatin* 20 MG TAB PO SCH (08:40)
[2018-06-03] MEDS: Isosorbide Mononitrate ER TAB* 60 MG PO SCH (08:40)
--- NOTE | 2018-06-04 05:32 | DS ---
CC: Dr. Sullivan; Dr. Dong; Dr. Fonseca; Dr. Dietrich DISCHARGE SUMMARY: DATE OF ADMISSION: 05/28/18 DATE OF DISCHARGE: 06/03/18 PRIMARY CARE PROVIDER: Dr. Sullivan. CONSULTING NEUROLOGISTS: Dr. Dong, Dr. Fonseca, Dr. Dietrich. DISCHARGE DIAGNOSES: 1. Right temporal lacunar cardiovascular accident. 2. Right leg cellulitis with streptococcus agalactiae septicemia. 3. 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 SECONDARY DIAGNOSES: 1. Coronary artery disease, status post myocardial infarction/stent. 2. Transient ischemic attack. 3. Hypertension. 4. Hyperlipidemia. MEDICATION LIST: 1. Acetaminophen 500 mg p.o. q.6 hours p.r.n. pain or fever. 2. Aspirin 81 mg p.o. daily. 3. Aggrenox 25/200 one capsule p.o. b.i.d. 4. Isordil 40 mg p.o. daily. 5. Multivitamin 1 tablet p.o. daily. 6. Atorvastatin 40 mg p.o. daily. 7. Quinapril 20 mg p.o. daily. 8. Tamsulosin 0.4 mg p.o. daily. New medications: 1. Amlodipine 10 mg p.o. daily. 2. Cephalexin 500 mg p.o. q.8 hours for 10 more days. HOSPITAL COURSE: Mr. Gray is an 83-year-old male with a past medical history as stated above, who presented to the emergency room with complaints of left-sided weakness. As per HPI, the patient wok e up around 4 a.m., went to the bathroom, was in his usual state of health, and went back to sleep. When he woke up again about 8 a.m., he noticed that he could not get up and that his left side was we ak, the reason why he presented to the emergency room. For more details about his presentation, I re arnoldo you to his history and physical. In the emergency room, the patient had a CT of the brain that showed chronic ischemic white matter ch sofie without evidence of intracranial mass or hemorrhage. He had an MRI of the brain without contrast that showed chronic ischemic white matter change. Central and cortical atrophy with small focal are a of restriction and diffusion in the right temporal insula consistent with a small lacunar infarct. The patient was seen in consultation by Neurology (Dr. Dong) and his impression is that the patient' s MRI showed evidence of a tiny lacunar infarct in the right insula/basal ganglia region; although th is can explain his neurological deficit. The stroke was quite small and he thought that his symptoms were not proportionate to the size of the stroke. Prior to admission, the patient was on aspirin 81 mg and Aggrenox and his initial recommendation after 24 hours was to change the patient to Plavix 75 mg daily. He did not recommend dual antiplatelet therapy as the patient has diffuse micro-angioplast ic hemorrhage on the MRI. He also recommended continuation of statin therapy. As a part of his workup, the patient had a transthoracic echocardiogram that showed ejection fraction of 60% to 65% with septal flattening of the interventricular septum consistent with right ventricula r volume or pressure overload. The right ventricle is moderately dilated. Right atrium is moderate to severely dilated. There were late bubbles seen in the left atrium with Valsalva compatible with a possible PFO. MRA of the head showed no aneurysmal dilatation of the intracranial vessels, no branch occlusion, and an MRI of the brain showed atrophy, but no intracranial lesion was identified. The patient was seen by Physical Therapy and was felt not to have any acute PT needs at this time jeannine t would require fci facility. It was felt that he could have PT at home to address bed m obility. He was also discharged from occupational therapy. By the time of discharge, his neurological deficits were minimal with some left hand clumsiness, but he stated that he was feeling much better. At that point, the patient was on aspirin [address] Cristina palomo recommended continuation of this therapy, but the patient was on aspirin and Aggrenox on admis bart and I felt that just aspirin would not be enough of antiplatelet therapy, so I discussed the lalo e with Dr. Dietrich, the neurologist neon glass bender on the day of discharge, and he agreed that putting the p atient back on aspirin and Aggrenox would be the way to go. The patient will follow up with Neurolog y as outpatient and therefore, the discussion can be held if this small lacunar infarct would justify changing his antiplatelet regimen from aspirin/Aggrenox to Plavix. Of note, on admission, the patient was also found to have fever and was noted to have right lower ext remity edema and erythema and 2 sets of blood cultures on admission grew Streptococcus agalactiae. Joseph caraballo was seen in consultation by Infectious Disease (Dr. Winchester) and his recommendation was for treatm ent with ceftriaxone, transesophageal echocardiogram, and if negative to continue treatment with ceph alexin to complete a 14-day treatment. He felt that the source was likely the cellulitis of the right ankle, which is typical of the celluli tis caused by group B strep. A transesophageal echocardiogram was performed, showed ejection fraction of 60% to 65%. No thrombus visualized in the left atrial appendage. No vegetations were observed and there is a PFO demonstrate d by color Doppler and agitated contrast. As the patient had signs of right ventricle pressure overload with a PFO, he underwent a workup for p aradoxical embolus. A CTA of the chest showed no evidence of acute pulmonary embolic disease and low er extremity Doppler was negative for DVT. Only incidental finding of a Alvarenga's cyst in the left pop liteal fossa. The patient became afebrile, had significant improvement of his right lower extremity edema and eryth mic and followup blood cultures showed no growth. Also during the hospital stay, the patient was noted to be hypertensive and amlodipine was added to h is regimen for further blood pressure control. The patient was noted to have leukocytosis on admission, but further questioning and evaluation revea led that he had actually been diagnosed with CLL. He was seen by Dr. Grover and her impression is that he appears to have stage 0 CLL. Flow cytometry is pending and should be followed as outpatient. He is medically stable for discharge at this time. PHYSICAL EXAMINATION: Vital Signs: Temperature 98.2, heart rate is 51, respiratory rate 16, oxygen saturation 97% on room air, and blood pressure is 151/66. General: The patient is a pleasant elderl y male, sitting up in the chair, in no acute distress. CVS: Normal S1, S2. Regular rate and rhythm . Chest: Breath sounds present bilaterally with no added sounds. Neuro: He is alert and oriented x 3 with minimal left hemiparesis, but still has some left hand clumsiness. Extremities: Right lower e xtremity minimal edema and erythema from the ankle extending into his wu. DIET: Heart-healthy diet. ACTIVITY: As tolerated. DISPOSITION: To home. STATUS WHILE IN THE HOSPITAL: Inpatient. Please keep in mind this is a summarized version of this patient's hospital stay. If you need more in formation, please feel free to contact [phone] or please obtain the full medical records. As outpatient, the patient will need to follow up with Neurology. It could be Dr. Fonseca, Dr. Wilson rt, or Dr. Pascal to further discuss if he should continue on aspirin and Aggrenox or if they will deci de to switch him to Plavix. [id number]/[facility] #: [id number]
== END 2018-06-03 12:10 | disposition home health service (06) | DRG 871 ==
LOC: ED 09:31 → MEDTELE 13:59
PROVIDERS: ADMIT Student in an Organized Health Care Education/Training Program; ATTEND Internal Medicine
PROC: B24BZZ4 Ultrasonography of Heart with Aorta, Transesophageal (ICD-10-PCS; principal; 2018-05-28)
DX: A40.1 Sepsis due to streptococcus, group B (principal); I63.9 Cerebral infarction, unspecified; I61.9 Nontraumatic intracerebral hemorrhage, unspecified; G81.94 Hemiplegia, unspecified affecting left nondominant side; L03.115 Cellulitis of right lower limb; C91.10 Chronic lymphocytic leukemia of B-cell type not having achieved remission; Q21.1 Atrial septal defect; I10 Essential (primary) hypertension; R29.810 Facial weakness; I25.10 Atherosclerotic heart disease of native coronary artery without angina pectoris; R40.2142 Coma scale, eyes open, spontaneous, at arrival to emergency department; R40.2362 Coma scale, best motor response, obeys commands, at arrival to emergency department; R40.2252 Coma scale, best verbal response, oriented, at arrival to emergency department; R29.702 NIHSS score 2; F17.290 Nicotine dependence, other tobacco product, uncomplicated; I08.3 Combined rheumatic disorders of mitral, aortic and tricuspid valves; B95.4 Other streptococcus as the cause of diseases classified elsewhere; E78.5 Hyperlipidemia, unspecified; M71.22 Synovial cyst of popliteal space [Baker], left knee; R73.03 Prediabetes; Z83.3 Family history of diabetes mellitus; Z82.49 Family history of ischemic heart disease and other diseases of the circulatory system; I25.2 Old myocardial infarction; Z95.5 Presence of coronary angioplasty implant and graft; Z86.73 Personal history of transient ischemic attack (TIA), and cerebral infarction without residual deficits; Z79.82 Long term (current) use of aspirin
CPT/HCPCS: 36415; 70450; 70544; 70551; 70552; 71046; 71275; 80048; 80053; 80061; 81003; 81015; 82330; 83036; 83605; 83735; 84100; 84443; 84484; 85025; 85027; 85060; 85610; 85730; 86140; 87040; 87077; 87086; 87150; 87186; 87205; 88184; 88185; 88187; 88188; 88189; 93005; 93306; 93312; 93325; 93880; 93970; 99156; 99157; 99223; 99284; A9270-GY; A9579; G8978-GP-CJ; G8979-GP-CI; G8987-GO-CI; G8988-GO-CI; G8989-GO-CI; G8996-GN-CH; G8997-GN-CH; G8998-GN-CH; J0360; J0610; J0692; J0696; J1650; J2250; J2310; J3010; J3370; J3475; Q9967

== ENCOUNTER 2018-10-20 10:14 | Inpatient (IN) | payer MEDICARE ==
[2018-10-20] MEDS ORDERED: Pantoprazole* 80 mg IN NS 80 MG/250 ML BAG IVPB ONE (10:54)
[2018-10-20] MEDS ORDERED: Pantoprazole IV* 40 MG IV ONE (10:54)
[2018-10-20 11:02] LABS: Hematocrit 38 % (42-52); Hemoglobin 12.8 g/dl (14.0-18.0); Mean Corpuscular HGB Conc 34 g/dl (31-36); Mean Corpuscular Hemoglobin 31 pg (27-31); Mean Corpuscular Volume 92 fL (80-94); Mean Platelet Volume 7.1 fL (7.4-10.4); Platelet Count 194 10^3/ul (150-450); Red Blood Count 4.13 10^6/ul (4.00-5.40); Red Cell Distribution Width 13 % (10.5-15); White Blood Count 27.7 10^3/ul (3.5-10.8)
[2018-10-20 11:10] LABS: Activated Partial Thrombo Time 27.5 seconds (26.0-36.3); INR 0.94 (0.77-1.02)
[2018-10-20 11:23] LABS: Albumin 3.9 g/dL (3.2-5.2); Albumin/Globulin Ratio 1.8 (1-3); Calcium 9.3 mg/dL (8.6-10.3); EGFR Non-African American 71.7 (>60); Globulin 2.2 g/dL (2-4); Potassium 4.8 mmol/L (3.5-5.0); Total Bilirubin 0.8 mg/dL (0.2-1.0); Total Protein 6.1 g/dL (6.4-8.9)
[2018-10-20 11:34] LABS: Lymphocytes % 59 %; Monocytes % 1 %; Neutrophil % 35 %; Variant Lymph % 4 % (0-6)
[2018-10-20 11:35] LABS: ABS Basophils 0 10^3/ul (0-0.2); ABS Eosinophils 0.1 10^3/ul (0-0.6); ABS Lymphocytes 16.7 10^3/ul (1.0-4.8); ABS Monocytes 0.8 10^3/ul (0-0.8); ABS Neutrophils 10.1 10^3/ul (1.5-7.7); ABS Nucleated RBC 0.1 10^3/ul; Nucleated Red Blood Cells % 0.4
[2018-10-20 11:36] LABS: ABS Neutrophils 9.7 10^3/ul (1.5-7.7)
[2018-10-20 11:37] LABS: ABS Eosinophils 0.3 10^3/ul (0-0.6)
--- NOTE | 2018-10-20 14:12 | ED ---
GI/ HPI - HPI Summary HPI Summary: This patient is a 83 year old M presenting to [facility] with a chief complaint of 3 episodes of rectal bleeding that began yesterday. The patient does have a history of cerebral vascular disease and CAD, he is currently taking Aggrenox. Currently he only reports mild weakness and denies ABD pain, CP, n/v/d, and SOB. - History of Current Complaint Chief Complaint: EDGIBleed Time Seen by Provider: 10/20/18 10:17 Stated Complaint: RECTAL BLEEDING Hx Obtained From: Patient Onset/Duration: Started Days Ago - 1, Still Present Timing: Constant Severity: Moderate Current Severity: Moderate Vaginal Bleeding Description: Bright Red Pain Intensity: 0 Associated Signs and Symptoms: Positive: Negative - n/v/d - Additional Pertinent History Primary Care Physician: MIC - Allergy/Home Medications Allergies/Adverse Reactions: Allergies Allergy/AdvReac Type Severity Reaction Status Date / Time No Known Allergies Allergy Verified 10/20/18 10:19 Home Medications: Home Medications hydroCHLOROthiazide [Hydrochlorothiazide] 25 mg PO DAILY 10/20/18 [History Confirmed 10/20/18] PMH/Surg Hx/FS Hx/Imm Hx Endocrine/Hematology History: Denies: Hx Diabetes, Hx Sickle Cell Disease Cardiovascular History: Reports: Hx Coronary Artery Disease, Hx Hypertension, Hx Myocardial Infarction Denies: Hx Auto Implanted Cardiovert Defib, Hx Congenital Heart Disease, Hx Pacemaker/ICD Respiratory History: Denies: Hx Chronic Obstructive Pulmonary Disease (COPD) History: Denies: Hx Dialysis Sensory History: Reports: Hx Contacts or Glasses Denies: Hx Legally Blind, Hx Hearing Aid Opthamlomology History: Reports: Hx Contacts or Glasses Denies: Hx Legally Blind Neurological History: Reports: Hx CVA, Hx Transient Ischemic Attacks (TIA) Denies: Hx Dementia, Hx Seizures Psychiatric History: Denies: Hx Autism, Hx Panic Disorder, Hx Schizophrenia - Surgical History Surgery Procedure, Year, and Place: 2x stents 2000 s/p [place]. Infectious Disease History: No Infectious Disease History: Denies: Traveled Outside the [place] in Last 30 Days - Family History Known Family History: Negative: Respiratory Disease, Blood Disorder - Social History Lives: With Family Alcohol Use: Rare Hx Substance Use: No Substance Use Type: Reports: None Hx Tobacco Use: No Smoking Status (MU): Never Smoked Tobacco Review of Systems Negative: Fever, Chills Negative: Erythema Negative: Sore Throat Negative: Chest Pain Negative: Shortness Of Breath, Cough Gastrointestinal: Other - blood in the stool Negative: Abdominal Pain, Vomiting, Diarrhea, Nausea Negative: dysuria, hematuria Negative: Myalgia, Edema Negative: Rash Neurological: Negative - dizziness Positive: Weakness All Other Systems Reviewed And Are Negative: Yes Physical Exam - Summary Physical Exam Summary: Constitutional: Well-developed, Well-nourished, Alert. (-) Distressed Skin: Warm, Dry HENT: Normocephalic; Atraumatic Eyes: Conjunctiva normal Neck: Musculoskeletal ROM normal neck. (-) JVD, (-) Stridor, (-) Tracheal deviation Cardio: Rhythm regular, rate normal, Heart sounds normal; Intact distal pulses; The pedal pulses are 2+ and symmetric. Radial pulses are 2+ and symmetric. (-) Murmur Pulmonary/Chest wall: Effort normal. (-) Respiratory distress, (-) Wheezes, (-) Rales Abd: Soft, (-) epigastric tenderness, (-) Distension, (-) Guarding, (-) Rebound Musculoskeletal: (-) Edema Lymph: (-) Cervical adenopathy Neuro: Alert, Oriented x3 Psych: Mood and affect Normal Rectal: there is monica blood in the rectum Triage Information Reviewed: Yes Vital Signs On Initial Exam: Initial Vitals Temp Pulse Resp BP Pulse Ox 97.7 F 50 16 189/67 99 10/20/18 10:15 10/20/18 10:15 10/20/18 10:15 10/20/18 10:15 10/20/18 10:15 Vital Signs Reviewed: Yes Diagnostics - Vital Signs Vital Signs Temp Pulse Resp BP Pulse Ox 10/20/18 10:15 97.7 F 50 16 189/67 99 - Laboratory Lab Results: Lab Results 10/20/18 10/20/18 10/20/18 Range/Units 10:43 10:45 10:45 WBC 27.7 H (3.5-10.8) 10^3/ul RBC 4.13 (4.00-5.40) 10^6/ul Hgb 12.8 L (14.0-18.0) g/dl Hct 38 L (42-52) % MCV 92 (80-94) fL MCH 31 (27-31) pg MCHC 34 (31-36) g/dl RDW 13 (10.5-15) % Plt Count 194 (150-450) 10^3/ul MPV 7.1 L (7.4-10.4) fL Neut % (Auto) Not Reportable Lymph % (Auto) Not Reportable Luna % (Auto) Not Reportable Eos % (Auto) Not Reportable Baso % (Auto) Not Reportable Absolute Neuts (auto) 10.1 H (1.5-7.7) 10^3/ul Absolute Lymphs (auto) 16.7 H (1.0-4.8) 10^3/ul Absolute Monos (auto) 0.8 (0-0.8) 10^3/ul Absolute Eos (auto) 0.1 (0-0.6) 10^3/ul Absolute Basos (auto) 0 (0-0.2) 10^3/ul Absolute Nucleated RBC 0.1 10^3/ul Neutrophils % 35 % Lymphocytes % 59 % Reactive Lymphs % 4 (0-6) % Monocytes % 1 % Eosinophils % 1 % Nucleated RBC % 0.4 Abs Neuts (Manual) 9.7 H (1.5-7.7) 10^3/ul Abs Lymphs (Manual) 17.4 H (1.0-4.8) 10^3/ul Abs Monocytes (Manual) 0.3 (0-0.8) 10^3/ul Absolute Eos (Manual) 0.3 (0-0.6) 10^3/ul Normal RBC Morphology Normal (Normal) Hem Pathologist Commnt Pending INR (Anticoag Therapy) 0.94 (0.77-1.02) APTT 27.5 (26.0-36.3) seconds Sodium (135-145) mmol/L Potassium (3.5-5.0) mmol/L Chloride (101-111) mmol/L Carbon Dioxide (22-32) mmol/L Anion Gap (2-11) mmol/L BUN (6-24) mg/dL Creatinine (0.67-1.17) mg/dL Est GFR ( Amer) (>60) Est GFR (Non-Af Amer) (>60) BUN/Creatinine Ratio (8-20) Glucose (70-100) mg/dL Calcium (8.6-10.3) mg/dL Total Bilirubin (0.2-1.0) mg/dL AST (13-39) U/L ALT (7-52) U/L Alkaline Phosphatase (34-104) U/L Troponin I (<0.04) ng/mL Total Protein (6.4-8.9) g/dL Albumin (3.2-5.2) g/dL Globulin (2-4) g/dL Albumin/Globulin Ratio (1-3) Blood Type AB Positive Antibody Screen Negative 10/20/18 Range/Units 10:45 WBC (3.5-10.8) 10^3/ul RBC (4.00-5.40) 10^6/ul Hgb (14.0-18.0) g/dl Hct (42-52) % MCV (80-94) fL MCH (27-31) pg MCHC (31-36) g/dl RDW (10.5-15) % Plt Count (150-450) 10^3/ul MPV (7.4-10.4) fL Neut % (Auto) Lymph % (Auto) Luna % (Auto) Eos % (Auto) Baso % (Auto) Absolute Neuts (auto) (1.5-7.7) 10^3/ul Absolute Lymphs (auto) (1.0-4.8) 10^3/ul Absolute Monos (auto) (0-0.8) 10^3/ul Absolute Eos (auto) (0-0.6) 10^3/ul Absolute Basos (auto) (0-0.2) 10^3/ul Absolute Nucleated RBC 10^3/ul Neutrophils % % Lymphocytes % % Reactive Lymphs % (0-6) % Monocytes % % Eosinophils % % Nucleated RBC % Abs Neuts (Manual) (1.5-7.7) 10^3/ul Abs Lymphs (Manual) (1.0-4.8) 10^3/ul Abs Monocytes (Manual) (0-0.8) 10^3/ul Absolute Eos (Manual) (0-0.6) 10^3/ul Normal RBC Morphology (Normal) Hem Pathologist Commnt INR (Anticoag Therapy) (0.77-1.02) APTT (26.0-36.3) seconds Sodium 132 L (135-145) mmol/L Potassium 4.8 (3.5-5.0) mmol/L Chloride 101 (101-111) mmol/L Carbon Dioxide 24 (22-32) mmol/L Anion Gap 7 (2-11) mmol/L BUN 31 H (6-24) mg/dL Creatinine 1.00 (0.67-1.17) mg/dL Est GFR ( Amer) 86.8 (>60) Est GFR (Non-Af Amer) 71.7 (>60) BUN/Creatinine Ratio 31.0 H (8-20) Glucose 134 H (70-100) mg/dL Calcium 9.3 (8.6-10.3) mg/dL Total Bilirubin 0.80 (0.2-1.0) mg/dL AST 21 (13-39) U/L ALT 22 (7-52) U/L Alkaline Phosphatase 70 (34-104) U/L Troponin I 0.02 (<0.04) ng/mL Total Protein 6.1 L (6.4-8.9) g/dL Albumin 3.9 (3.2-5.2) g/dL Globulin 2.2 (2-4) g/dL Albumin/Globulin Ratio 1.8 (1-3) Blood Type Antibody Screen Result Diagrams: 10/20/18 14:07 10/20/18 10:45 Lab Statement: Any lab studies that have been ordered have been reviewed, and results considered in the medical decision making process. - EKG 1041 Cardiac Rate: Bradycardia EKG Rhythm: Sinus Bradycardia - at 48 BPM Summary of EKG Findings: no STEMI GIGU Course/Dx - Course Assessment/Plan: This patient is a 83 year old M presenting to [facility] with a chief complaint of 3 episodes of rectal bleeding that began yesterday. The patient does have a history of cerebral vascular disease and CAD, he is currently taking Aggrenox. Currently he only reports mild weakness and denies ABD pain, CP, n/v/d, and SOB. There was bloodwork obtained. In the ED course the patient was given protonix. H and H stable, no suspicious for colitis on exam. Observation due to use of antiplatelet medications. We discussed patient care with Dr. Cortes GI and they recommended serial CBCs and they will begin prepping for a colonoscopy. We discussed patient care with Dr. Vazquez and she has accepted the patient for admission. Patient will be admitted. The patient is agreeable with this plan. - Diagnoses Provider Diagnoses: Rectal bleeding - Physician Notifications Discussed Care Of Patient With: winter Discharge - Sign-Out/Discharge Documenting (check all that apply): Patient Departure - admitted - Discharge Plan Condition: Fair Disposition: ADMITTED TO [facility] Referrals: Nate BRUCE,Eldon Rothman [Primary Care Provider] - - Billing Disposition and Condition Condition: FAIR Disposition: Admitted to [facility] - Attestation Statements Document Initiated by Shereee: Yes Documenting Scribe: Rasheed Pardo Provider For Whom Scribe is Documenting (Include Credential): Johann Mock MD Scribe Attestation: Rasheed Medellin , scribed for Johann Mock MD on 10/20/18 at 1503. Scribe Documentation Reviewed: Yes Provider Attestation: The documentation as recorded by the Rasheed betancorut accurately reflects the service I personally performed and the decisions made by me, Johann Mock MD Status of Scribe Document: Viewed Consult Consult: 14:15 We discussed patient care with Dr. Cortes, GI and they recommended serial CBCs and they will begin prepping for a colonoscopy. 14:30 We discussed patient care with Dr. Vazquez and she has accepted the patient for admission.
[2018-10-20 14:22] LABS: Hematocrit 38 % (42-52); Hemoglobin 12.9 g/dl (14.0-18.0); Mean Corpuscular HGB Conc 34 g/dl (31-36); Mean Corpuscular Hemoglobin 31 pg (27-31); Mean Corpuscular Volume 93 fL (80-94); Mean Platelet Volume 7.2 fL (7.4-10.4); Platelet Count 186 10^3/ul (150-450); Red Blood Count 4.13 10^6/ul (4.00-5.40); Red Cell Distribution Width 13 % (10.5-15)
[2018-10-20] MEDS ORDERED: PEG 3000 GI LAVAGE* 1 GALLON PO ONE (15:04)
[2018-10-20] MEDS ORDERED: Hydrochlorothiazide TAB* 25 MG ONE (15:08)
[2018-10-20] MEDS ORDERED: Hydrochlorothiazide TAB* 25 MG PO ONE (15:11)
[2018-10-20] MEDS ORDERED: Aspirin 81 mg CHEW TAB* 81 MG TAB.CHEW PO SCH (16:00)
--- NOTE | 2018-10-20 16:03 | CONS ---
GASTROENTEROLOGY CONSULT REPORT: DATE OF CONSULT: 10/20/18 PROVIDER REQUESTING CONSULT: Dr. Mock (ED). HISTORY OF PRESENT ILLNESS: Mr. Gray is an 83-year-old gentleman with a history of CAD, TIA, lacunar CVA, hypertension, hyperlipidemia, and chronic leukocytosis, who presents to the ER with rectal bleeding. Mr. Gray was in usual state of health until yesterday evening when he had a large loose stool with a lot of dark red blood. He says that he had a similar second episode sometime later in the evening. Presents to the ER for evaluation. also presenting to ED for possible tonsilitis. He has not had a similar episode in the past. Denies any chronic or current GI symptoms other than the bleeding. Denies any nausea, vomiting, abdominal pain. No prior colonoscopy. PAST MEDICAL HISTORY: 1. History of CAD status post an CO and stents. 2. TIA in 2008 and lacunar CVA in May 2018. Currently on aspirin and Aggrenox. 3. Hypertension. 4. Hyperlipidemia. 5. Chronic leukocytosis of unclear etiology. MEDICATIONS: 1. Aspirin. 2. Aggrenox. 3. Hydrochlorothiazide. 4. Isosorbide. 5. Multivitamin. 6. Pravastatin. 7. Quinapril. 8. Tamsulosin. 9. Tylenol p.r.n. ALLERGIES: No known allergies. FAMILY HISTORY: No known GI or liver disease. SOCIAL HISTORY: . Former smoker. No significant alcohol use in the past. REVIEW OF SYSTEMS: A 14-point review of systems negative except as above. PHYSICAL EXAM: Vital Signs: Temp 97.7, heart rate 50, blood pressure 189/67, 99% on room air. General: Elderly gentleman, comfortable appearing, resting in bed. HEENT: Mucous membranes moist. Cardiovascular: Regular rate and rhythm. Pulmonary: Breathing comfortably. Lungs clear in anterior lung feliciano. Abdomen: Soft, nontender, nondistended. Rectal Exam: Limited due to difficulty with the patient's positioning, but there is some bright red blood around rectum. Small internal and external hemorrhoids noted. ED provider had recently performed a rectal exam and noted monica blood. Extremities: No significant edema. DIAGNOSTIC STUDIES/LAB DATA: Laboratories: Reviewed labs. White count 27.7, which is similar to prior counts. Hemoglobin 12.8; hematocrit 38. This is in comparison to a hemoglobin of 12.5 in May 2018. Platelet count normal. MCV normal. INR 0.94. Comprehensive panel notable for a sodium of 132, BUN of 31, creatinine of 1. Normal LFTs. Normal troponin. No imaging. IMPRESSION AND RECOMMENDATIONS: Mr. Gray is an 83-year-old gentleman with a history of coronary artery disease, transient ischemic attack, lacunar stroke (), and chronic leukocytosis, who presents with several episodes of rectal bleeding. Currently on Aggrenox and aspirin. Mr. Gray is hemodynamically stable. His labs are notable for a chronic leukocytosis and hematocrit similar to baseline in May 2018. On exam, he does have small amount of bright red blood coming from rectum. The patient has never had similar episodes. He has not had a prior colonoscopy. Per ER, the patient may be admitted for observation as he is on antiplatelet medication. Differential includes hemorrhoidal bleeding, diverticular bleeding, mass or large polyp-related bleeding as no prior colonoscopy, arteriovenous malformation , ischemic colitis. - Recommend close monitoring for ongoing bleeding as well as for any change in blood counts. - If bleeding continues or blood counts drop, then I would recommend beginning with half of a colonoscopy prep. The prep can help to flush the colon blood and allow for easier determination regarding if bleeding is active versus resolved. Additionally, a prep allows us to have the option of proceeding with the colonoscopy if needed. - Given the patient's history of transient ischemic attack and stroke several months ago, I am hesitant to have his Aggrenox/ASA held in the absence of a significant or life-threatening bleeding. Would recommend holding if clinical change or significantly dropping counts. GI will continue to follow. Thank you for this consult. [id number]/[facility] #: [id number] [facility]
[2018-10-20] MEDS: Hydrochlorothiazide TAB* 25 MG PO SCH (18:53)
[2018-10-20 20:34] LABS: Hematocrit 38 % (42-52); Hemoglobin 12.7 g/dl (14.0-18.0)
[2018-10-20] MEDS: Lisinopril TAB* 10 MG PO SCH (20:49)
[2018-10-20] MEDS: Atorvastatin* 10 MG TAB PO SCH (20:49)
--- NOTE | 2018-10-21 | HP ---
CC: Dr. Sullivan * HISTORY AND PHYSICAL: DATE OF ADMISSION: 10/20/18 PROVIDER: Mari Rogers NP. PRIMARY CARE PROVIDER: Dr. Sullivan. ATTENDING PHYSICIAN WHILE IN THE HOSPITAL: Dr. Lillie Vazquez * (dictated by Mari Rogers NP). CHIEF COMPLAINT: Rectal bleeding. HISTORY OF PRESENT ILLNESS: Mr. Gray is an 83-year-old male with a past medical history significant for coronary artery disease, AK with stent placement in 1999, hypertension, hyperlipidemia, CLL diagnosed in 1999, CVA x3, who presented to the emergency room with rectal bleeding. The patient reports that he had dark red bleeding at home. He had bowel movements x2 today, both with blood. He denies any abdominal pain, nausea, vomiting or diarrhea. He does report the stool was loose. He denies any cough, hemoptysis or shortness of breath. Denies any chest pain or edema. Denies any fever, hematuria or dysuria. Denies any focal weakness, dysphagia, arthralgias, myalgias, rashes, lesions, psychosis or anxiety. The patient does report that he felt weaker for the past couple of days. He has no other complaints, no recent sick contacts. Due to his rectal bleeding, we were asked to see and evaluate him for admission. PAST MEDICAL HISTORY: Significant for CAD, AK with stenting in 1999, hypertension, hyperlipidemia, CLL diagnosed in 1999, and CVA. PAST SURGICAL HISTORY: 1. Tonsillectomy. 2. Cardiac stents. HOME MEDICATIONS: Include: 1. Hydrochlorothiazide 25 mg p.o. daily. 2. Tamsulosin 0.4 mg p.o. daily. 3. Quinapril 20 mg p.o. b.i.d. 4. Pravastatin 40 mg p.o. daily. 5. Multivitamin 1 daily. 6. Isordil 60 mg p.o. daily. 7. Aggrenox 1 cap p.o. b.i.d. 8. Aspirin 81 mg p.o. daily. 9. Acetaminophen 500 mg p.o. q.6 hours as needed for pain. ALLERGIES: No known drug allergies. FAMILY HISTORY: Father with a history of an AK and at the age of 58. Mother with a history of diabetes. No reported history of cancer. SOCIAL HISTORY: The patient reports that he used to smoke a pipe and quit over 30 years ago. He does report occasional alcohol use. Denies any illicit drug use. He is . Surrogate decision maker, in the event he is unable to make his own decision, is his . The patient wishes to be a DNR/DNI. MOLST form was completed. REVIEW OF SYSTEMS: There has been no documented fever. No unintended weight loss. No chest pain or edema. No cough, hemoptysis or shortness of breath. Denies any nausea, vomiting or abdominal pain. He does report loose stools that were bloody and dark at home. He denies any gross hematuria, dysuria, focal weakness or sensory loss. Denies any visual complaints, dysphagia, arthralgias, myalgias, rashes, lesions, psychosis or anxiety. PHYSICAL EXAMINATION GENERAL: At this time, Mr. Gray is an 83-year-old male. He appears pale, resting on the stretcher in the emergency room. He does not appear to be in any acute distress. VITAL SIGNS: Blood pressure was 187/65, heart rate was 47, respirations 16, O2 saturation was 96% on room air, temperature was 98.0. HEENT: Head is atraumatic and normocephalic. Eyes: EOMs are intact. Sclerae are anicteric and not pale. Oral mucosa appear to be moist. NECK: Supple. LUNGS: Clear to auscultation bilaterally. No wheezes, rales, or rhonchi. CARDIAC: S1 and S2. Regular rate and rhythm. No murmurs, rubs or gallops. ABDOMEN: Soft and nontender. Bowel sounds were present x4. Guaiac card, present in the room, positive for bright red blood. EXTREMITIES: Pedal pulses are +2 bilaterally. He is able to move all 4 extremities with 5/5 strength. NEUROLOGIC: He is awake, alert, and oriented x3. Speech is clear. Thought processes are intact. No gross focal deficits. SKIN: Intact. DIAGNOSTIC STUDIES/LABORATORY DATA: WBCs of 27.7, hemoglobin 12.8, hematocrit was 38, platelet count 194. INR was 0.94, APTT was 27.5. Sodium 132, potassium 4.8, chloride 101, carbon dioxide was 24, anion gap 7, BUN 31, creatinine 1.0, glucose 134, calcium 9.3. ASTs were 21, ALTs were 22. Troponin was 0.02. He had an electrocardiogram, which showed sinus bradycardia at a rate of 48. ASSESSMENT AND PLAN: Mr. Gray is an 83-year-old male who presented to the emergency room with complaints of rectal bleeding, on Aggrenox and aspirin at home, who will be admitted under observation for: 1. Gastrointestinal bleed: The patient does have monica bright red blood from the rectum. He was seen in consultation by Gastroenterology who recommended a half dose of GoLYTELY prep, n.p.o. after midnight for possible colonoscopy tomorrow if the patient continues to have significant amounts of bright red blood per rectum. Guaiac for stool was positive for blood. We will continue to trend his H and H q.6 hours. He was placed on a Protonix drip. We will place him on telemetry and continue to monitor his vital signs. 2. History of coronary artery disease: I am going to hold his Aggrenox and aspirin at this time as the patient does have bright red blood per the rectum. 3. Hypertension: I will continue his hydrochlorothiazide and Prinivil. 4. Hyperlipidemia: I will continue his pravastatin. 5. FEN: He will be placed on clear liquid diet, n.p.o. after midnight for possible colonoscopy. 6. DVT prophylaxis will be held due to rectal bleeding. I will place him on SCDs. 7. Code status: He is a DNR/DNI. MOLST form was completed. TIME SPENT: Time spent on this admission was 60 minutes, greater than half that time was spent [id number] with the patient obtaining my history and physical, the other half of the time was spent going over my plan of care and implementing my plan of care. I have discussed this with my attending, Dr. Lillie Vazquez, she is in agreement with my plan. MARI ROGERS, ROBYN [id number]/[facility] #: [id number] PHILIPP
[2018-10-21 02:16] LABS: Hematocrit 37 % (42-52); Hemoglobin 12.4 g/dl (14.0-18.0)
[2018-10-21 06:00] LABS: Hematocrit 39 % (42-52); Hemoglobin 12.8 g/dl (14.0-18.0); Mean Corpuscular HGB Conc 33 g/dl (31-36); Mean Corpuscular Hemoglobin 31 pg (27-31); Mean Corpuscular Volume 93 fL (80-94); Mean Platelet Volume 7.4 fL (7.4-10.4); Platelet Count 185 10^3/ul (150-450); Red Blood Count 4.15 10^6/ul (4.00-5.40); Red Cell Distribution Width 13 % (10.5-15); White Blood Count 29.6 10^3/ul (3.5-10.8)
[2018-10-21 06:59] LABS: ABS Basophils 0 10^3/ul (0-0.2); ABS Eosinophils 0.1 10^3/ul (0-0.6); ABS Lymphocytes 16.7 10^3/ul (1.0-4.8); ABS Monocytes 1.1 10^3/ul (0-0.8); ABS Neutrophils 11.7 10^3/ul (1.5-7.7); ABS Nucleated RBC 0.1 10^3/ul; Eosinophil % 0.3 %; Lymphocyte % 56.4 %; Nucleated Red Blood Cells % 0.3
[2018-10-21 07:26] LABS: Calcium 9.2 mg/dL (8.6-10.3); Potassium 4.3 mmol/L (3.5-5.0)
[2018-10-21 07:31] LABS: BUN/Creatinine Ratio 21.9 (8-20); EGFR Non-African American 75.2 (>60)
[2018-10-21] MEDS: Tamsulosin CAP* 0.4 MG PO SCH (08:08)
[2018-10-21] MEDS: Lisinopril TAB* 10 MG PO SCH ×2 (08:08→22:23)
[2018-10-21] MEDS: Hydrochlorothiazide TAB* 25 MG PO SCH (08:08)
[2018-10-21 08:24] LABS: Hematocrit 38 % (42-52); Hemoglobin 12.6 g/dl (14.0-18.0)
--- NOTE | 2018-10-21 11:40 | PN ---
Subjective Date of Service: 10/21/18 Interval History: Pt is feeling well today. He states he has not had any bowel movements today therefore no further bleeding. He denies any chest pain, SOB, lightheadedness or dizziness. He feels like he can manage at home without his . Objective Active Medications: Atorvastatin Calcium (Lipitor*) 10 mg PO 2100 [facility] Last Admin: 10/20/18 20:49 Dose: 10 mg Hydrochlorothiazide (Hydrodiuril Tab*) 25 mg PO DAILY [facility] Last Admin: 10/21/18 08:08 Dose: 25 mg Lisinopril (Prinivil Tab*) 20 mg PO BID [facility] Last Admin: 10/21/18 08:08 Dose: 20 mg Tamsulosin HCl (Flomax Cap*) 0.4 mg PO DAILY [facility] Last Admin: 10/21/18 08:08 Dose: 0.4 mg Vital Signs - 8 hr 10/21/18 10/21/18 07:33 08:00 Temperature 98.2 F Pulse Rate 50 Respiratory 16 16 Rate Blood Pressure 152/50 (mmHg) O2 Sat by Pulse 98 Oximetry Oxygen Devices in Use Now: None Appearance: Elderly male sitting up in bed, NAD Eyes: No Scleral Icterus Ears/Nose/Mouth/Throat: Mucous Membranes Moist Respiratory: Symmetrical Chest Expansion and Respiratory Effort, Clear to Auscultation Cardiovascular: NL Sounds; No Murmurs; No JVD, RRR, No Edema Abdominal: NL Sounds; No Tenderness; No Distention Extremities: No Clubbing, Cyanosis Skin: No Nodules or Sclerosis Neurological: Alert and Oriented x 3 Result Diagrams: 10/21/18 08:04 10/21/18 05:42 Additional Lab and Data: Lab Results 10/20/18 10/20/18 10/20/18 Range/Units 10:43 10:45 10:45 WBC 27.7 H (3.5-10.8) 10^3/ul RBC 4.13 (4.00-5.40) 10^6/ul Hgb 12.8 L (14.0-18.0) g/dl Hct 38 L (42-52) % MCV 92 (80-94) fL MCH 31 (27-31) pg MCHC 34 (31-36) g/dl RDW 13 (10.5-15) % Plt Count 194 (150-450) 10^3/ul MPV 7.1 L (7.4-10.4) fL Neut % (Auto) Not Reportable Lymph % (Auto) Not Reportable [place] % (Auto) Not Reportable Eos % (Auto) Not Reportable Baso % (Auto) Not Reportable Absolute Neuts (auto) 10.1 H (1.5-7.7) 10^3/ul Absolute Lymphs (auto) 16.7 H (1.0-4.8) 10^3/ul Absolute Monos (auto) 0.8 (0-0.8) 10^3/ul Absolute Eos (auto) 0.1 (0-0.6) 10^3/ul Absolute Basos (auto) 0 (0-0.2) 10^3/ul Absolute Nucleated RBC 0.1 10^3/ul Neutrophils % 35 % Lymphocytes % 59 % Reactive Lymphs % 4 (0-6) % Monocytes % 1 % Eosinophils % 1 % Nucleated RBC % 0.4 Abs Neuts (Manual) 9.7 H (1.5-7.7) 10^3/ul Abs Lymphs (Manual) 17.4 H (1.0-4.8) 10^3/ul Abs Monocytes (Manual) 0.3 (0-0.8) 10^3/ul Absolute Eos (Manual) 0.3 (0-0.6) 10^3/ul Normal RBC Morphology Normal (Normal) Hem Pathologist Commnt Pending INR (Anticoag Therapy) 0.94 (0.77-1.02) APTT 27.5 (26.0-36.3) seconds Sodium (135-145) mmol/L Potassium (3.5-5.0) mmol/L Chloride (101-111) mmol/L Carbon Dioxide (22-32) mmol/L Anion Gap (2-11) mmol/L BUN (6-24) mg/dL Creatinine (0.67-1.17) mg/dL Est GFR ( Amer) (>60) Est GFR (Non-Af Amer) (>60) BUN/Creatinine Ratio (8-20) Glucose (70-100) mg/dL Calcium (8.6-10.3) mg/dL Total Bilirubin (0.2-1.0) mg/dL AST (13-39) U/L ALT (7-52) U/L Alkaline Phosphatase (34-104) U/L Troponin I (<0.04) ng/mL Total Protein (6.4-8.9) g/dL Albumin (3.2-5.2) g/dL Globulin (2-4) g/dL Albumin/Globulin Ratio (1-3) Blood Type AB Positive Antibody Screen Negative 10/20/18 Range/Units 10:45 WBC (3.5-10.8) 10^3/ul RBC (4.00-5.40) 10^6/ul Hgb (14.0-18.0) g/dl Hct (42-52) % MCV (80-94) fL MCH (27-31) pg MCHC (31-36) g/dl RDW (10.5-15) % Plt Count (150-450) 10^3/ul MPV (7.4-10.4) fL Neut % (Auto) Lymph % (Auto) [place] % (Auto) Eos % (Auto) Baso % (Auto) Absolute Neuts (auto) (1.5-7.7) 10^3/ul Absolute Lymphs (auto) (1.0-4.8) 10^3/ul Absolute Monos (auto) (0-0.8) 10^3/ul Absolute Eos (auto) (0-0.6) 10^3/ul Absolute Basos (auto) (0-0.2) 10^3/ul Absolute Nucleated RBC 10^3/ul Neutrophils % % Lymphocytes % % Reactive Lymphs % (0-6) % Monocytes % % Eosinophils % % Nucleated RBC % Abs Neuts (Manual) (1.5-7.7) 10^3/ul Abs Lymphs (Manual) (1.0-4.8) 10^3/ul Abs Monocytes (Manual) (0-0.8) 10^3/ul Absolute Eos (Manual) (0-0.6) 10^3/ul Normal RBC Morphology (Normal) Hem Pathologist Commnt INR (Anticoag Therapy) (0.77-1.02) APTT (26.0-36.3) seconds Sodium 132 L (135-145) mmol/L Potassium 4.8 (3.5-5.0) mmol/L Chloride 101 (101-111) mmol/L Carbon Dioxide 24 (22-32) mmol/L Anion Gap 7 (2-11) mmol/L BUN 31 H (6-24) mg/dL Creatinine 1.00 (0.67-1.17) mg/dL Est GFR ( Amer) 86.8 (>60) Est GFR (Non-Af Amer) 71.7 (>60) BUN/Creatinine Ratio 31.0 H (8-20) Glucose 134 H (70-100) mg/dL Calcium 9.3 (8.6-10.3) mg/dL Total Bilirubin 0.80 (0.2-1.0) mg/dL AST 21 (13-39) U/L ALT 22 (7-52) U/L Alkaline Phosphatase 70 (34-104) U/L Troponin I 0.02 (<0.04) ng/mL Total Protein 6.1 L (6.4-8.9) g/dL Albumin 3.9 (3.2-5.2) g/dL Globulin 2.2 (2-4) g/dL Albumin/Globulin Ratio 1.8 (1-3) Blood Type Antibody Screen Microbiology and Other Data: Microbiology 10/20/18 18:50 Stool Occult Blood (HELIO) - Final Stool Assess/Plan/Problems-Billing Mr Gray is a 83yo M who has a h/o CVA, CLL, CAD, HTN and HLD who presented to the ER with c/o bright red blood per rectum. - Patient Problems (1) Rectal bleeding Current Visit: Yes Status: Acute Code(s): K62.5 - HEMORRHAGE OF ANUS AND RECTUM SNOMED Code(s): 15957948 Comment: Per GI likely hemorrhoidal bleeding. Likely an internal hemorrhoid. It has been recommended to utilize anusol suppositories BID x 1week. He has been instructed to return to the ER for increased rectal bleeding, lightheadedness or SOB. (2) CVA (cerebral vascular accident) Current Visit: Yes Status: Acute Code(s): I63.9 - CEREBRAL INFARCTION, UNSPECIFIED SNOMED Code(s): 779602657 Comment: Past CVA, continue aggrenox, stop ASA. No new symptoms. (3) CAD (coronary artery disease) Current Visit: Yes Status: Acute Code(s): I25.10 - ATHSCL HEART DISEASE OF [place] CORONARY ARTERY W/O ANG PCTRS SNOMED Code(s): 94050166 Comment: Stable. Continue imdur and lipitor. Resume aspirin. (4) Hypertension Current Visit: Yes Status: Acute Code(s): I10 - ESSENTIAL (PRIMARY) HYPERTENSION SNOMED Code(s): 06910807 Comment: - Controlled. - Continue Lisinopril and Amlodipine. (5) DVT prophylaxis Current Visit: Yes Status: Acute Code(s): QYS6390 - SNOMED Code(s): 673523845 Comment: SCDs/ambulation only seconadry to rectal bleeding. (6) DNR (do not resuscitate) Current Visit: Yes Status: Acute
--- NOTE | 2018-10-21 18:07 | PN ---
Progress Note - Progress Note Date of Service: 10/21/18 Note: GASTROENTEROLOGY FOLLOW-UP Reviewed chart. Met with patient. Spoke with primary team. VSS. Hct stable in 38-39 range. Rectal bleeding seems to have largely resolved with portion of Golytely prep. Patient denies any complaints. Small external hemorrhoids and internal hemorrhoids on rectal exam. No blood on exam. Given stable blood counts overnight and hemorrhoids on exam, I suspect that the rectal bleeding is secondary to hemorrhoids. Bleeding now resolved. Lower suspicion for diverticular bleed or other source of bleeding given absence of change in Hct. Patient is elderly and frail. Would defer colonoscopy at this time in favor of conservative management of hemorrhoids. Can consider colonoscopy if bleeding returns, worsens or is associated with change in blood counts. Would give Anusol suppositories BID x 1-2 weeks. Can continue on ASA/ Aggrenox given CAD and stroke history. Will arrange for follow-up in GI clinic. GI will sign off. Please call with any additional questions or concerns. Mariangel Cortes MD Gastroenterology
[2018-10-21] MEDS: Atorvastatin* 10 MG TAB PO SCH (22:23)
[2018-10-22] MEDS: Tamsulosin CAP* 0.4 MG PO SCH (09:23)
[2018-10-22] MEDS: Hydrochlorothiazide TAB* 25 MG PO SCH (09:23)
[2018-10-22] MEDS: Lisinopril TAB* 10 MG PO SCH ×2 (09:23→21:09)
--- NOTE | 2018-10-22 12:02 | PN ---
Subjective Date of Service: 10/22/18 Interval History: Pt is feeling ok today. Both nursing and the patient's indicate the patient has been confused. He denies any abdominal pain. No BMs today per pt. No rectal bleeding. Objective Active Medications: Atorvastatin Calcium (Lipitor*) 10 mg PO 2100 [facility] Last Admin: 10/21/18 22:23 Dose: 10 mg Hydrochlorothiazide (Hydrodiuril Tab*) 25 mg PO DAILY [facility] Last Admin: 10/22/18 09:23 Dose: 25 mg Lisinopril (Prinivil Tab*) 20 mg PO BID [facility] Last Admin: 10/22/18 09:23 Dose: 20 mg Tamsulosin HCl (Flomax Cap*) 0.4 mg PO DAILY [facility] Last Admin: 10/22/18 09:23 Dose: 0.4 mg Vital Signs - 8 hr 10/22/18 10/22/18 10/22/18 07:26 09:26 10:53 Temperature 98.2 F Pulse Rate 49 66 Respiratory 14 18 Rate Blood Pressure 149/50 (mmHg) O2 Sat by Pulse 97 Oximetry Oxygen Devices in Use Now: None Appearance: Elderly male sitting up in bed, visiting with his , NAD Eyes: No Scleral Icterus Ears/Nose/Mouth/Throat: Mucous Membranes Moist Respiratory: Symmetrical Chest Expansion and Respiratory Effort, Clear to Auscultation Cardiovascular: NL Sounds; No Murmurs; No JVD, RRR, No Edema Abdominal: NL Sounds; No Tenderness; No Distention Extremities: No Clubbing, Cyanosis Skin: No Nodules or Sclerosis Neurological: - - pleasantly confused Result Diagrams: 10/21/18 08:04 10/21/18 05:42 Additional Lab and Data: Lab Results 10/20/18 10/20/18 10/20/18 Range/Units 10:43 10:45 10:45 WBC 27.7 H (3.5-10.8) 10^3/ul RBC 4.13 (4.00-5.40) 10^6/ul Hgb 12.8 L (14.0-18.0) g/dl Hct 38 L (42-52) % MCV 92 (80-94) fL MCH 31 (27-31) pg MCHC 34 (31-36) g/dl RDW 13 (10.5-15) % Plt Count 194 (150-450) 10^3/ul MPV 7.1 L (7.4-10.4) fL Neut % (Auto) Not Reportable Lymph % (Auto) Not Reportable [place] % (Auto) Not Reportable Eos % (Auto) Not Reportable Baso % (Auto) Not Reportable Absolute Neuts (auto) 10.1 H (1.5-7.7) 10^3/ul Absolute Lymphs (auto) 16.7 H (1.0-4.8) 10^3/ul Absolute Monos (auto) 0.8 (0-0.8) 10^3/ul Absolute Eos (auto) 0.1 (0-0.6) 10^3/ul Absolute Basos (auto) 0 (0-0.2) 10^3/ul Absolute Nucleated RBC 0.1 10^3/ul Neutrophils % 35 % Lymphocytes % 59 % Reactive Lymphs % 4 (0-6) % Monocytes % 1 % Eosinophils % 1 % Nucleated RBC % 0.4 Abs Neuts (Manual) 9.7 H (1.5-7.7) 10^3/ul Abs Lymphs (Manual) 17.4 H (1.0-4.8) 10^3/ul Abs Monocytes (Manual) 0.3 (0-0.8) 10^3/ul Absolute Eos (Manual) 0.3 (0-0.6) 10^3/ul Normal RBC Morphology Normal (Normal) Hem Pathologist Commnt Pending INR (Anticoag Therapy) 0.94 (0.77-1.02) APTT 27.5 (26.0-36.3) seconds Sodium (135-145) mmol/L Potassium (3.5-5.0) mmol/L Chloride (101-111) mmol/L Carbon Dioxide (22-32) mmol/L Anion Gap (2-11) mmol/L BUN (6-24) mg/dL Creatinine (0.67-1.17) mg/dL Est GFR ( Amer) (>60) Est GFR (Non-Af Amer) (>60) BUN/Creatinine Ratio (8-20) Glucose (70-100) mg/dL Calcium (8.6-10.3) mg/dL Total Bilirubin (0.2-1.0) mg/dL AST (13-39) U/L ALT (7-52) U/L Alkaline Phosphatase (34-104) U/L Troponin I (<0.04) ng/mL Total Protein (6.4-8.9) g/dL Albumin (3.2-5.2) g/dL Globulin (2-4) g/dL Albumin/Globulin Ratio (1-3) Blood Type AB Positive Antibody Screen Negative 10/20/18 Range/Units 10:45 WBC (3.5-10.8) 10^3/ul RBC (4.00-5.40) 10^6/ul Hgb (14.0-18.0) g/dl Hct (42-52) % MCV (80-94) fL MCH (27-31) pg MCHC (31-36) g/dl RDW (10.5-15) % Plt Count (150-450) 10^3/ul MPV (7.4-10.4) fL Neut % (Auto) Lymph % (Auto) [place] % (Auto) Eos % (Auto) Baso % (Auto) Absolute Neuts (auto) (1.5-7.7) 10^3/ul Absolute Lymphs (auto) (1.0-4.8) 10^3/ul Absolute Monos (auto) (0-0.8) 10^3/ul Absolute Eos (auto) (0-0.6) 10^3/ul Absolute Basos (auto) (0-0.2) 10^3/ul Absolute Nucleated RBC 10^3/ul Neutrophils % % Lymphocytes % % Reactive Lymphs % (0-6) % Monocytes % % Eosinophils % % Nucleated RBC % Abs Neuts (Manual) (1.5-7.7) 10^3/ul Abs Lymphs (Manual) (1.0-4.8) 10^3/ul Abs Monocytes (Manual) (0-0.8) 10^3/ul Absolute Eos (Manual) (0-0.6) 10^3/ul Normal RBC Morphology (Normal) Hem Pathologist Commnt INR (Anticoag Therapy) (0.77-1.02) APTT (26.0-36.3) seconds Sodium 132 L (135-145) mmol/L Potassium 4.8 (3.5-5.0) mmol/L Chloride 101 (101-111) mmol/L Carbon Dioxide 24 (22-32) mmol/L Anion Gap 7 (2-11) mmol/L BUN 31 H (6-24) mg/dL Creatinine 1.00 (0.67-1.17) mg/dL Est GFR ( Amer) 86.8 (>60) Est GFR (Non-Af Amer) 71.7 (>60) BUN/Creatinine Ratio 31.0 H (8-20) Glucose 134 H (70-100) mg/dL Calcium 9.3 (8.6-10.3) mg/dL Total Bilirubin 0.80 (0.2-1.0) mg/dL AST 21 (13-39) U/L ALT 22 (7-52) U/L Alkaline Phosphatase 70 (34-104) U/L Troponin I 0.02 (<0.04) ng/mL Total Protein 6.1 L (6.4-8.9) g/dL Albumin 3.9 (3.2-5.2) g/dL Globulin 2.2 (2-4) g/dL Albumin/Globulin Ratio 1.8 (1-3) Blood Type Antibody Screen Microbiology and Other Data: Microbiology 10/20/18 18:50 Stool Occult Blood (HELIO) - Final Stool Assess/Plan/Problems-Billing Mr Gray is a 83yo M who has a h/o CVA, CLL, CAD, HTN and HLD who presented to the ER with c/o bright red blood per rectum. - Patient Problems (1) Rectal bleeding Current Visit: Yes Status: Acute Code(s): K62.5 - HEMORRHAGE OF ANUS AND RECTUM SNOMED Code(s): 71602871 Comment: Per GI likely hemorrhoidal bleeding. Start anusol suppositories today as pt will be going to a SNF on d/c. Monitor for further bleeding. (2) CVA (cerebral vascular accident) Current Visit: Yes Status: Acute Code(s): I63.9 - CEREBRAL INFARCTION, UNSPECIFIED SNOMED Code(s): 297246156 Comment: Resume aggrenox. (3) CAD (coronary artery disease) Current Visit: Yes Status: Acute Code(s): I25.10 - ATHSCL HEART DISEASE OF [place] CORONARY ARTERY W/O ANG PCTRS SNOMED Code(s): 21077207 Comment: Stable. Continue isordil and lipitor. Resume aggrenox. (4) Hypertension Current Visit: Yes Status: Acute Code(s): I10 - ESSENTIAL (PRIMARY) HYPERTENSION SNOMED Code(s): 95770174 Comment: BP is moderately elevated. Continue lisinopril and HCTZ and add back isordil. (5) DVT prophylaxis Current Visit: Yes Status: Acute Code(s): ENJ0316 - SNOMED Code(s): 194091175 Comment: SCDs/ambulation only seconadry to rectal bleeding. (6) DNR (do not resuscitate) Current Visit: Yes Status: Acute
[2018-10-22] MEDS: Hydrocortisone SUPP* 25 MG SUPP (2.5%) PR SCH ×2 (13:45→21:47)
[2018-10-22] MEDS ORDERED: Acetaminophen TAB* 325 MG PO PRN (20:48)
[2018-10-22] MEDS ORDERED: Acetaminophen TAB* 325 MG ONE (21:05)
[2018-10-22] MEDS: Atorvastatin* 10 MG TAB PO SCH (21:08)
[2018-10-22] MEDS: Dipyridamole/Aspirin 25/200* CAP.ER PO SCH (21:09)
[2018-10-23] MEDS: Tamsulosin CAP* 0.4 MG PO SCH (09:18)
[2018-10-23] MEDS: Lisinopril TAB* 10 MG PO SCH ×2 (09:18→21:13)
[2018-10-23] MEDS: Hydrochlorothiazide TAB* 25 MG PO SCH (09:19)
[2018-10-23] MEDS: Isosorbide Dinitrate TAB* 20 MG PO SCH (09:19)
[2018-10-23] MEDS: Dipyridamole/Aspirin 25/200* CAP.ER PO SCH ×2 (09:19→21:13)
[2018-10-23] MEDS: Hydrocortisone SUPP* 25 MG SUPP (2.5%) PR SCH ×2 (10:48→21:13)
[2018-10-23 14:46] LABS: Hematocrit 35 % (42-52); Hemoglobin 11.9 g/dl (14.0-18.0); Mean Corpuscular HGB Conc 34 g/dl (31-36); Mean Corpuscular Hemoglobin 31 pg (27-31); Mean Corpuscular Volume 93 fL (80-94); Mean Platelet Volume 7.2 fL (7.4-10.4); Platelet Count 213 10^3/ul (150-450); Red Blood Count 3.82 10^6/ul (4.00-5.40); Red Cell Distribution Width 13 % (10.5-15); White Blood Count 25.9 10^3/ul (3.5-10.8)
[2018-10-23 15:17] LABS: Albumin 3.4 g/dL (3.2-5.2); Albumin/Globulin Ratio 1.7 (1-3); BUN/Creatinine Ratio 20.7 (8-20); Calcium 8.9 mg/dL (8.6-10.3); EGFR Non-African American 39.1 (>60); Potassium 4.6 mmol/L (3.5-5.0); Total Bilirubin 0.4 mg/dL (0.2-1.0); Total Protein 5.4 g/dL (6.4-8.9)
--- NOTE | 2018-10-23 15:40 | DS ---
CC: Dr. Sullivan DATE OF ADMISSION: 10/20/2018. DATE OF DISCHARGE: 10/24/2018. PRIMARY CARE PHYSICIAN: Dr. Sullivan. PRIMARY DIAGNOSIS: Rectal bleeding suspected from hemorrhoidal source. SECONDARY DIAGNOSES: 1. Hypertension. 2. CLL. 3. Significant debility. MEDICATIONS ON DISCHARGE: 2. Tamsulosin 0.4 mg daily. 4. Pravastatin 40 mg daily. 5. Multivitamin one tab daily. 6. Isordil 60 mg daily. 7. Aggrenox one cap twice daily. 8. Aspirin 81 mg daily. 9. Acetaminophen 500 mg every 6 hours as needed. 10. Lisinopril 20 mg twice daily. 11. Hydrocortisone suppositories 25 mg per rectum twice daily for 14 days. Note HCTZ 25mg was discontinued prior to discharge. Please restart if necessary. PERTINENT LABORATORY DATA: Hemoglobin on discharge 12.6 on the 21 of October. CONSULTATIONS OBTAINED DURING THE HOSPITAL STAY: Gastroenterology. HISTORY OF PRESENT ILLNESS AND HOSPITAL COURSE: This is an 83-year-old man with a past medical history as outlined in the history of present illness. On the day of admission, he presented to the hospital with bright red blood per rectum. He was seen in consultation by Gastroenterology. On rectal exam, identified both external and internal hemorrhoids. The patient had no additional bleeding during the course of the hospital stay after a GI prep. His hemoglobin ran stable. The patient will continue with Anusol suppositories and be transferred to [facility]. The patient's medication was adjusted and increased to improve his hypertension. Of note on 10/23 prior to discharge the patient became less responsive. He was evaluated with an ABG, CT head, CXR and labs all of which were without concern. He became more alert without intervention. Of note, the indicates this occurs occasionally at home. Seizure is on the differential although no overt evidence of seizure was identified. AT FOLLOW-UP PLEASE: 1. Please evaluate for continued stability and no further bleeding, rectal source. 2. Please evaluate for continued blood pressure control. Note HCTZ 25mg was discontinued prior to discharge. Please restart if necessary. 3. No other specific labs or vitals that need follow-up. REASONS TO RETURN TO THE HOSPITAL: Including, but not limited to recurrent or worsening symptoms including bright red blood per rectum or dark black stool, lightheadedness, chest pain, shortness of breath, dyspnea on exertion, fevers, chills, night sweats, and inability to obtain or tolerate medications are recommended. Greater than 60 minutes were spent on the discharge of this patient with greater than half spent [id number] with the patient and his . [id number]/[facility] #: [id number] PHILIPP
[2018-10-23] MEDS ORDERED: NS 0.9% 1000 ML* 1,000 ML IV SCH (16:15)
--- NOTE | 2018-10-23 18:15 | PN ---
Subjective Date of Service: 10/23/18 Interval History: Seen this AM while walking from bathroom No additional BRPR Was planned for transfer to [facility] however CAT call called later in day for decrease level of responsiveness. CT head, ABG, EKG, CXR labs performed. Patient resumed nl of consciousness without intervention throughout the day. He will be monitored overnight prior to discharge tomorrow. Objective Active Medications: Acetaminophen (Tylenol Tab*) 650 mg PO Q4H PRN PRN Reason: pain or fever Last Admin: 10/22/18 21:08 Dose: 650 mg Atorvastatin Calcium (Lipitor*) 10 mg PO 2100 [facility] Last Admin: 10/22/18 21:08 Dose: 10 mg Dipyridamole/Aspirin (Aggrenox 25/200*) 1 cap.er PO BID [facility] Last Admin: 10/23/18 09:19 Dose: 1 cap.er Hydrochlorothiazide (Hydrodiuril Tab*) 25 mg PO DAILY [facility] Last Admin: 10/23/18 09:19 Dose: 25 mg Hydrocortisone (Anusol Hc Supp*) 25 mg [place] BID [facility] Last Admin: 10/23/18 10:48 Dose: Not Given Sodium Chloride (Ns 0.9% 1000 Ml*) 1,000 mls @ 150 mls/hr IV PER RATE [facility] Stop: 10/23/18 22:54 Last Admin: 10/23/18 17:46 Dose: 150 mls/hr Isosorbide Dinitrate (Isordil Tab*) 60 mg PO DAILY [facility] Last Admin: 10/23/18 09:19 Dose: 60 mg Lisinopril (Prinivil Tab*) 20 mg PO BID [facility] Last Admin: 10/23/18 09:18 Dose: 20 mg Tamsulosin HCl (Flomax Cap*) 0.4 mg PO DAILY [facility] Last Admin: 10/23/18 09:18 Dose: 0.4 mg Vital Signs - 8 hr 10/23/18 10/23/18 10/23/18 11:34 11:47 13:57 Temperature 97.4 F 96.8 F Pulse Rate 62 51 Respiratory 16 Rate Blood Pressure 83/34 112/40 95/40 (mmHg) O2 Sat by Pulse 96 96 Oximetry 10/23/18 10/23/18 13:58 14:33 Temperature 97.4 F Pulse Rate 56 Respiratory 16 Rate Blood Pressure 108/42 106/41 (mmHg) O2 Sat by Pulse 96 Oximetry Oxygen Devices in Use Now: None Appearance: NAD Eyes: No Scleral Icterus Ears/Nose/Mouth/Throat: NL Teeth, Lips, Gums Respiratory: Symmetrical Chest Expansion and Respiratory Effort, Clear to Auscultation Cardiovascular: RRR Abdominal: NL Sounds; No Tenderness; No Distention Lymphatic: No Cervical Adenopathy Extremities: No Edema Neurological: Alert and Oriented x 3 Result Diagrams: 10/23/18 14:40 10/23/18 14:40 Additional Lab and Data: Lab Results 10/20/18 10/20/18 10/20/18 Range/Units 10:43 10:45 10:45 WBC 27.7 H (3.5-10.8) 10^3/ul RBC 4.13 (4.00-5.40) 10^6/ul Hgb 12.8 L (14.0-18.0) g/dl Hct 38 L (42-52) % MCV 92 (80-94) fL MCH 31 (27-31) pg MCHC 34 (31-36) g/dl RDW 13 (10.5-15) % Plt Count 194 (150-450) 10^3/ul MPV 7.1 L (7.4-10.4) fL Neut % (Auto) Not Reportable Lymph % (Auto) Not Reportable [place] % (Auto) Not Reportable Eos % (Auto) Not Reportable Baso % (Auto) Not Reportable Absolute Neuts (auto) 10.1 H (1.5-7.7) 10^3/ul Absolute Lymphs (auto) 16.7 H (1.0-4.8) 10^3/ul Absolute Monos (auto) 0.8 (0-0.8) 10^3/ul Absolute Eos (auto) 0.1 (0-0.6) 10^3/ul Absolute Basos (auto) 0 (0-0.2) 10^3/ul Absolute Nucleated RBC 0.1 10^3/ul Neutrophils % 35 % Lymphocytes % 59 % Reactive Lymphs % 4 (0-6) % Monocytes % 1 % Eosinophils % 1 % Nucleated RBC % 0.4 Abs Neuts (Manual) 9.7 H (1.5-7.7) 10^3/ul Abs Lymphs (Manual) 17.4 H (1.0-4.8) 10^3/ul Abs Monocytes (Manual) 0.3 (0-0.8) 10^3/ul Absolute Eos (Manual) 0.3 (0-0.6) 10^3/ul Normal RBC Morphology Normal (Normal) Hem Pathologist Commnt Pending INR (Anticoag Therapy) 0.94 (0.77-1.02) APTT 27.5 (26.0-36.3) seconds Sodium (135-145) mmol/L Potassium (3.5-5.0) mmol/L Chloride (101-111) mmol/L Carbon Dioxide (22-32) mmol/L Anion Gap (2-11) mmol/L BUN (6-24) mg/dL Creatinine (0.67-1.17) mg/dL Est GFR ( Amer) (>60) Est GFR (Non-Af Amer) (>60) BUN/Creatinine Ratio (8-20) Glucose (70-100) mg/dL Calcium (8.6-10.3) mg/dL Total Bilirubin (0.2-1.0) mg/dL AST (13-39) U/L ALT (7-52) U/L Alkaline Phosphatase (34-104) U/L Troponin I (<0.04) ng/mL Total Protein (6.4-8.9) g/dL Albumin (3.2-5.2) g/dL Globulin (2-4) g/dL Albumin/Globulin Ratio (1-3) Blood Type AB Positive Antibody Screen Negative 10/20/18 Range/Units 10:45 WBC (3.5-10.8) 10^3/ul RBC (4.00-5.40) 10^6/ul Hgb (14.0-18.0) g/dl Hct (42-52) % MCV (80-94) fL MCH (27-31) pg MCHC (31-36) g/dl RDW (10.5-15) % Plt Count (150-450) 10^3/ul MPV (7.4-10.4) fL Neut % (Auto) Lymph % (Auto) [place] % (Auto) Eos % (Auto) Baso % (Auto) Absolute Neuts (auto) (1.5-7.7) 10^3/ul Absolute Lymphs (auto) (1.0-4.8) 10^3/ul Absolute Monos (auto) (0-0.8) 10^3/ul Absolute Eos (auto) (0-0.6) 10^3/ul Absolute Basos (auto) (0-0.2) 10^3/ul Absolute Nucleated RBC 10^3/ul Neutrophils % % Lymphocytes % % Reactive Lymphs % (0-6) % Monocytes % % Eosinophils % % Nucleated RBC % Abs Neuts (Manual) (1.5-7.7) 10^3/ul Abs Lymphs (Manual) (1.0-4.8) 10^3/ul Abs Monocytes (Manual) (0-0.8) 10^3/ul Absolute Eos (Manual) (0-0.6) 10^3/ul Normal RBC Morphology (Normal) Hem Pathologist Commnt INR (Anticoag Therapy) (0.77-1.02) APTT (26.0-36.3) seconds Sodium 132 L (135-145) mmol/L Potassium 4.8 (3.5-5.0) mmol/L Chloride 101 (101-111) mmol/L Carbon Dioxide 24 (22-32) mmol/L Anion Gap 7 (2-11) mmol/L BUN 31 H (6-24) mg/dL Creatinine 1.00 (0.67-1.17) mg/dL Est GFR ( Amer) 86.8 (>60) Est GFR (Non-Af Amer) 71.7 (>60) BUN/Creatinine Ratio 31.0 H (8-20) Glucose 134 H (70-100) mg/dL Calcium 9.3 (8.6-10.3) mg/dL Total Bilirubin 0.80 (0.2-1.0) mg/dL AST 21 (13-39) U/L ALT 22 (7-52) U/L Alkaline Phosphatase 70 (34-104) U/L Troponin I 0.02 (<0.04) ng/mL Total Protein 6.1 L (6.4-8.9) g/dL Albumin 3.9 (3.2-5.2) g/dL Globulin 2.2 (2-4) g/dL Albumin/Globulin Ratio 1.8 (1-3) Blood Type Antibody Screen Microbiology and Other Data: Microbiology 10/20/18 18:50 Stool Occult Blood (HELIO) - Final Stool Assess/Plan/Problems-Billing Mr Gray is a 83yo M who has a h/o CVA, CLL, CAD, HTN and HLD who presented to the ER with c/o bright red blood per rectum. - Patient Problems (1) CVA (cerebral vascular accident) Comment: Resume aggrenox. (2) Hypertension Comment: BP is moderately elevated. Continue lisinopril and HCTZ and add back isordil. (3) Rectal bleeding Comment: Per GI likely hemorrhoidal bleeding. Start anusol suppositories today as pt will be going to a SNF on d/c. Monitor for further bleeding. (4) CHACE (acute kidney injury) Comment: monitor (5) DNR (do not resuscitate)
[2018-10-23] MEDS: Atorvastatin* 10 MG TAB PO SCH (21:13)
[2018-10-24 07:21] LABS: Hematocrit 34 % (42-52); Hemoglobin 11.2 g/dl (14.0-18.0); Mean Corpuscular HGB Conc 33 g/dl (31-36); Mean Corpuscular Hemoglobin 31 pg (27-31); Mean Corpuscular Volume 93 fL (80-94); Mean Platelet Volume 7.4 fL (7.4-10.4); Platelet Count 191 10^3/ul (150-450); Red Blood Count 3.63 10^6/ul (4.00-5.40); Red Cell Distribution Width 13 % (10.5-15); White Blood Count 25.9 10^3/ul (3.5-10.8)
[2018-10-24 07:36] LABS: BUN/Creatinine Ratio 26.4 (8-20); Calcium 8.5 mg/dL (8.6-10.3); Potassium 4.5 mmol/L (3.5-5.0)
[2018-10-24 07:50] LABS: ABS Basophils 0 10^3/ul (0-0.2); ABS Eosinophils 0.2 10^3/ul (0-0.6); ABS Monocytes 0.7 10^3/ul (0-0.8); ABS Neutrophils 5.9 10^3/ul (1.5-7.7); ABS Nucleated RBC 0.1 10^3/ul; Eosinophil % 0.8 %; Lymphocyte % 73.3 %; Nucleated Red Blood Cells % 0.2
[2018-10-24] MEDS: Dipyridamole/Aspirin 25/200* CAP.ER PO SCH (09:00)
[2018-10-24] MEDS: Tamsulosin CAP* 0.4 MG PO SCH (09:00)
[2018-10-24] MEDS: Hydrochlorothiazide TAB* 25 MG PO SCH (09:00)
[2018-10-24] MEDS: Lisinopril TAB* 10 MG PO SCH (09:00)
[2018-10-24] MEDS: Isosorbide Dinitrate TAB* 20 MG PO SCH (09:00)
[2018-10-24] MEDS: Hydrocortisone SUPP* 25 MG SUPP (2.5%) PR SCH (09:01)
[2018-10-24 13:36] VITALS: BP 76/26
[2018-10-24 13:49] LABS: Urine Appearance Clear; Urine Bilirubin Negative (Negative); Urine Blood Negative (Negative); Urine Color Yellow; Urine Glucose Negative (Negative); Urine Ketones Negative (Negative); Urine Nitrite Negative (Negative); Urine Protein Negative (Negative); Urine Specific Gravity 1.017 (1.010-1.030); Urine Urobilinogen Negative (Negative)
--- NOTE | 2018-10-24 17:54 | PN ---
Progress Note - Progress Note Date of Service: 10/24/18 Note: Please refer to discharge note form 10/23 for full details pertaining to hospital stay and discharge. Pt planned for dc 10/23 but had sudden decrease in level of arousal as described in summary. Today pt back to baseline per his assessment and his 's assessment. Hid did have confusion at sun down yesterday. No further bleeding or events since yesterday. AOx3 rrr clear b/l BS soft, NT, ND NAD
== END 2018-10-24 15:42 | DRG 394 ==
LOC: ED 10:14 → MED 14:47
PROVIDERS: ADMIT Hospitalist; ATTEND Internal Medicine
DX: K64.8 Other hemorrhoids (principal); C91.10 Chronic lymphocytic leukemia of B-cell type not having achieved remission; K64.4 Residual hemorrhoidal skin tags; I25.10 Atherosclerotic heart disease of native coronary artery without angina pectoris; Z66 Do not resuscitate; R53.81 Other malaise; I10 Essential (primary) hypertension; E78.5 Hyperlipidemia, unspecified; Z82.49 Family history of ischemic heart disease and other diseases of the circulatory system; R00.1 Bradycardia, unspecified; Z83.3 Family history of diabetes mellitus; Z86.73 Personal history of transient ischemic attack (TIA), and cerebral infarction without residual deficits; Z95.5 Presence of coronary angioplasty implant and graft; Z87.891 Personal history of nicotine dependence; Z72.89 Other problems related to lifestyle; Z79.82 Long term (current) use of aspirin; I25.2 Old myocardial infarction; R41.0 Disorientation, unspecified
CPT/HCPCS: 36415; 36600; 70450; 71045; 80048; 80053; 81003; 82270; 82803; 84484; 85014; 85018; 85025; 85027; 85060; 85610; 85730; 86850; 86900; 86901; 93005; 99284; A9270-GY; G8978-GP-CJ; G8979-GP-CH